=== PATIENT | male | born 1945 | race Caucasian/White ===

== ENCOUNTER 2016-09-18 10:56 | Emergency (ER) | payer MEDICARE, BC ==
[2016-09-18 11:42] VITALS: BP 127/62
--- NOTE | 2016-09-18 12:14 | UC ---
Lower Extremity/Ankle HPI - HPI Summary HPI Summary: Dropped firewood on R foot about 1 week ago. Still having pain with touch and ambulation. Has severe PAD, DM, has sensory problems in foot normally. - History of Current Complaint Chief Complaint: UCLowerExtremity Stated Complaint: FOOT INJURY Time Seen by Provider: 09/18/16 12:05 Hx Obtained From: Patient Onset/Duration: Sudden Onset, Lasting Days Severity Initially: Moderate Severity Currently: Moderate Aggravating Factor(s): Standing, Ambulation Alleviating Factor(s): Rest Able to Bear Weight: Yes - Allergies/Home Medications Allergies/Adverse Reactions: Allergies Allergy/AdvReac Type Severity Reaction Status Date / Time Morphine Allergy Severe Hives Verified 12/13/14 19:50 Iodinated Diagnostic Agents Allergy Hives Verified 09/21/15 14:29 IVP dye Allergy Severe Hives Uncoded 12/13/14 19:50 PACEMAKER-NO MRIs Allergy NO MRIs Uncoded 06/25/15 11:55 PMH/Surg Hx/FS Hx/Imm Hx Endocrine History Of: Reports: Diabetes - NO MEDS, Thyroid Disease Cardiovascular History Of: Reports: Cardiac Disorders, Hypertension, Pacemaker/ ICD - NO MRIs Denies: Congestive Heart Failure Respiratory History Of: Reports: COPD, Pneumonia Denies: Asthma GI/ History Of: Reports: Kidney Stones - CURRENT WITH LT OBSTRUCTION IN URETER Denies: Gastroesophageal Reflux, Ulcer, Renal Disease Neurological History Of: Denies: CVA, Dementia, Seizures Other History Of: Anticoagulant Therapy - COUMADIN PLAVIX AND ASA - Surgical History Surgical History: Yes Surgery Procedure, Year, and Place: Bypass, 08/1991, Hx 5 DC's, Pacemaker 08/2011 - NO MRIs - Family History Known Family History: Positive: Hypertension, Other - Father of a pulmonary disease and mother of a brain tumor - Social History Alcohol Use: Rare Substance Use Type: None Smoking Status (MU): Heavy Every Day Tobacco Smoker Type: Cigarettes Amount Used/How Often: 1PPD Length of Time of Smoking/Using Tobacco: 1966- current - Immunization History Most Recent Tetanus Shot: < 10 years Review of Systems Constitutional: Negative Skin: Negative Eyes: Negative ENT: Negative Respiratory: Negative Cardiovascular: Negative Gastrointestinal: Negative Genitourinary: Negative Motor: Negative Neurovascular: Negative Musculoskeletal: Arthralgia Neurological: Negative Psychological: Negative All Other Systems Reviewed And Are Negative: Yes Physical Exam Triage Information Reviewed: Yes Appearance: Well-Appearing, No Pain Distress, Well-Nourished Vital Signs: Initial Vital Signs Temp 98.3 F 09/18/16 11:38 Pulse 68 09/18/16 11:38 Resp 16 09/18/16 11:38 BP 127/62 09/18/16 11:38 Pulse Ox 99 09/18/16 11:38 Vital Signs Reviewed: Yes Eye Exam: Normal Eyes: Positive: Conjunctiva Clear ENT Exam: Normal ENT: Positive: Normal ENT inspection, Hearing grossly normal, Pharynx normal, TMs normal Neck exam: Normal Neck: Positive: Supple, Nontender, No Lymphadenopathy Respiratory Exam: Normal Respiratory: Positive: Chest non-tender, Lungs clear, Normal breath sounds, No respiratory distress, No accessory muscle use Cardiovascular: Positive: RRR, No Murmur, Distal Pulses Absent - RLE, pt states this is normal, as had femoral-popliteal grafts, usually has a hard time finding pulse with doppler Musculoskeletal: Positive: Strength Intact, Other: - tender over R 2nd - 4th MTs Neurological Exam: Normal Neurological: Positive: Alert Lower Extremity Course/Dx - Differential Dx/Diagnosis Provider Diagnoses: R foot crush injury Discharge - Discharge Plan Condition: Stable Disposition: HOME Patient Education Materials: Crush Injury (ED) Referrals: Raghu Zacarias MD [Primary Care Provider] - Additional Instructions: No fracture of your bones, no sign of infection today. Please return here or see your primary care provider if there is worsening pain or discoloration in your foot.
--- NOTE | 2016-09-18 12:31 | RAD ---
INDICATION: Right foot pain COMPARISON: None TECHNIQUE: AP, lateral, and oblique views were obtained. FINDINGS: There is no acute fracture. The joint spaces are preserved. There is soft tissue swelling over the dorsum of the midfoot. There are vascular calcifications. IMPRESSION: NO ACUTE FRACTURE
== END 2016-09-18 12:50 | disposition home or self-care (01) ==
LOC: UCEAST 10:56
DX: S97.81XA Crushing injury of right foot, initial encounter (principal); W20.8XXA Other cause of strike by thrown, projected or falling object, initial encounter; Y93.9 Activity, unspecified; Y92.9 Unspecified place or not applicable; Z79.01 Long term (current) use of anticoagulants; Z79.82 Long term (current) use of aspirin; Z95.0 Presence of cardiac pacemaker; Z95.1 Presence of aortocoronary bypass graft; Z88.5 Allergy status to narcotic agent; F17.210 Nicotine dependence, cigarettes, uncomplicated
CPT/HCPCS: 99211; G0463

== ENCOUNTER 2016-11-21 10:51 | Emergency (ER) | payer MEDICARE, BC | END 2016-11-21 11:00 | disposition left against medical advice (07) | LOC: UCEAST 10:51 | DX: T81.89XA Other complications of procedures, not elsewhere classified, initial encounter (principal); Z53.21 Procedure and treatment not carried out due to patient leaving prior to being seen by health care provider ==

== ENCOUNTER 2016-11-21 11:37 | Emergency (ER) | payer MEDICARE, BC ==
[2016-11-21 11:42] VITALS: BP 120/75
--- NOTE | 2016-11-21 12:52 | ED ---
Complex/Multi-Sys Presentation - HPI Summary HPI Summary: 71M presents with need for wound to be reattached. He woke up and the wound vac was unattached He has a wound vac on his right leg for a bypass 6 weeks ago. He sees the wound clinic twice a week. He denies any fever or or sign of infection. He does not have home health set up. - History Of Current Complaint Chief Complaint: EDGeneral Time Seen by Provider: 11/21/16 11:44 - Allergies/Home Medications Allergies/Adverse Reactions: Allergies Allergy/AdvReac Type Severity Reaction Status Date / Time Morphine Allergy Severe Hives Verified 12/13/14 19:50 Iodinated Diagnostic Agents Allergy Hives Verified 09/21/15 14:29 IVP dye Allergy Severe Hives Uncoded 12/13/14 19:50 PACEMAKER-NO MRIs Allergy NO MRIs Uncoded 06/25/15 11:55 PMH/Surg Hx/FS Hx/Imm Hx Endocrine/Hematology History: Reports: Hx Anticoagulant Therapy - COUMADIN PLAVIX AND ASA, Hx Diabetes - NO MEDS, Hx Thyroid Disease Denies: Other Endocrine/Hematological Disorders Cardiovascular History: Reports: Hx Auto Implanted Cardiovert Defib - ICD 2004, Hx Coronary Artery Disease, Hx Hypertension, Hx Pacemaker/ICD - NO MRIs, Other Cardiovascular Problems/Disorders - PVD; Ischemic Cardiomyopathy; ANTICOAGULANT THERAPY Denies: Hx Cardiac Arrest, Hx Congestive Heart Failure Comment Only: Hx Peripheral Vascular Disease - HAS HAD FEM POP BIPASS Respiratory History: Reports: Hx Chronic Obstructive Pulmonary Disease (COPD), Hx Pneumonia, Hx Seasonal Allergies, Hx Sleep Apnea, Other Respiratory Problems/ Disorders - CHRONIC SMOKER. 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 Denies: Hx Asthma GI History: Denies: Hx Ulcer, Other GI Disorders History: Reports: Hx Acute Renal Failure - HX, Hx Kidney Stones - CURRENT WITH LT OBSTRUCTION IN URETER, Other Problems/Disorders - CURRENT UROSEPSIS Denies: Hx Renal Disease Musculoskeletal History: Reports: Hx Back Problems Denies: Other Musculoskeletal History - SCIATICA Sensory History: Reports: Hx Contacts or Glasses Denies: Hx Hearing Aid, Other Sensory Impairments Opthamlomology History: Reports: Hx Contacts or Glasses Denies: Other Sensory Impairments Neurological History: Denies: Hx Dementia, Hx Seizures, Other Neuro Impairments/Disorders Psychiatric History: Denies: Hx Substance Abuse, Other Psychiatric Issues/Disorders - Cancer History Cancer Type, Location and Year: LUNG 2014 - Surgical History Surgery Procedure, Year, and Place: Bypass, 08/1991, Hx 5 HI's, Pacemaker 08/2011 - NO MRIs Hx Anesthesia Reactions: No - Immunization History Date of Tetanus Vaccine: Unk Date of Influenza Vaccine: July 2014 Infectious Disease History: No Infectious Disease History: Denies: Hx Hepatitis, Hx Human Immunodeficiency Virus (HIV), Hx Shingles, Hx Tuberculosis, Traveled Outside the [place] in Last 30 Days - Family History Known Family History: Positive: Hypertension, Other - Father of a pulmonary disease and mother of a brain tumor - Social History Alcohol Use: Rare Substance Use Type: Reports: None Smoking Status (MU): Heavy Every Day Tobacco Smoker Type: Cigarettes Amount Used/How Often: 1PPD Length of Time of Smoking/Using Tobacco: 1966- current Review of Systems Negative: Fever Negative: Chest Pain Negative: Shortness Of Breath Skin: Other - wound vac unattached All Other Systems Reviewed And Are Negative: Yes Physical Exam Triage Information Reviewed: Yes Vital Signs On Initial Exam: Initial Vitals Temp Pulse Resp BP Pulse Ox 97.8 F 76 15 120/75 96 11/21/16 11:40 11/21/16 11:40 11/21/16 11:40 11/21/16 11:40 11/21/16 11:40 Vital Signs Reviewed: Yes Appearance: Positive: Well-Appearing Skin: Positive: Warm, Dry, Other - wound covered Head/Face: Positive: Normal Head/Face Inspection Eyes: Positive: Normal, Conjunctiva Clear Respiratory/Lung Sounds: Positive: Clear to Auscultation, Breath Sounds Present Cardiovascular: Positive: Normal, RRR Diagnostics - Vital Signs Vital Signs Temp Pulse Resp BP Pulse Ox 11/21/16 11:40 97.8 F 76 15 120/75 96 - Laboratory Lab Statement: Any lab studies that have been ordered have been reviewed, and results considered in the medical decision making process. Complex Multi-Symp Course/Dx Course Of Treatment: 71m presents with wound vac unattached that woke up with. has wound vac for wound on right leg from bypass surgery. nurse from short stay came down and reattached wound vac. tried to get patient set up with home health but does not want at this time. told to talk to wound clinic at next appointment to have set up incase this happens again. patient understands and agrees with plan - Diagnoses Differential Diagnoses/HQI/PQRI: Sepsis, Other - wound vac problem Provider Diagnoses: Encounter for management of vacuum-assisted closure (VAC) of wound Discharge - Discharge Plan Condition: Good Disposition: HOME Referrals: Raghu Zacarias MD [Primary Care Provider] - Additional Instructions: Follow up as normally scheduled At next appointment discuss home health for incase have issue with wound vac again Return to ED if develop any new or worsening symptoms
== END 2016-11-21 12:56 | disposition home or self-care (01) ==
LOC: ED 11:37
DX: T81.89XA Other complications of procedures, not elsewhere classified, initial encounter (principal); Z48.01 Encounter for change or removal of surgical wound dressing
CPT/HCPCS: 99281

== ENCOUNTER 2017-03-22 19:13 | Inpatient (IN) | payer MEDICARE, BC ==
[2017-03-22] MEDS ORDERED: NS 0.9% 1000 ML* 1,000 ML IV SCH ×2 (19:30→20:45)
[2017-03-22 19:45] LABS: Hematocrit 42 % (42-52); Hemoglobin 13.4 g/dl (14.0-18.0); Mean Corpuscular HGB Conc 32 g/dl (31-36); Mean Corpuscular Hemoglobin 27 pg (27-31); Mean Corpuscular Volume 83 fL (80-94); Mean Platelet Volume 9 um3 (7.4-10.4); Red Blood Count 5.07 10^6/ul (4.0-5.4); Red Cell Distribution Width 18 % (10.5-15); White Blood Count 7.9 10^3/ul (3.5-10.8)
--- NOTE | 2017-03-22 20:04 | RAD ---
HISTORY: History of lung cancer, internal defibrillator activation COMPARISONS: September 21, 2015, CT dated January 25, 2017 VIEWS: 2: frontal portable view of the chest at 7:43 PM FINDINGS: LINES AND TUBES: A left-sided ICD pacemaker is noted. CARDIOMEDIASTINAL SILHOUETTE: The cardiac silhouette is mildly enlarged. The cardiomediastinal silhouette is otherwise normal for portable technique. PLEURA: The costophrenic angles are sharp. No pleural abnormalities are noted. LUNG PARENCHYMA: There is patchy alveolar opacification of the right lung base. This appears to correspond to postsurgical change noted on the previous CT examination. ABDOMEN: The upper abdomen is clear. There is no subphrenic gas. BONES AND SOFT TISSUES: No bone or soft tissue abnormalities are noted. IMPRESSION: MILD CARDIOMEGALY. NO ACTIVE CARDIOPULMONARY DISEASE.
[2017-03-22 20:06] LABS: Albumin 3.8 g/dL (3.2-5.2); BUN/Creatinine Ratio 17.5 (8-20); C Reactive Protein 7.9 mg/L (< 5.00); EGFR African American 57.7 (>60); EGFR Non-African American 44.9 (>60); Magnesium 1.6 mg/dL (1.9-2.7); Potassium 3.3 mmol/L (3.5-5.0); Total Bilirubin 0.6 mg/dL (0.2-1.0); Total Protein 6.8 g/dL (6.4-8.9)
[2017-03-22] MEDS ORDERED: NS 0.9% 1000 ML* 1,000 ML IV ONE (20:06)
[2017-03-22] MEDS ORDERED: Amiodarone 150 MG IVPREMIX* 150 MG/100 ML BAG IV ONE (20:14)
[2017-03-22] MEDS ORDERED: Amiodarone 360 MG IVPREMIX* 360 MG/200 ML BAG IV ONE ×2 (20:14→20:41)
[2017-03-22 20:16] LABS: Troponin I 0.04 ng/mL (<0.04)
[2017-03-22] MEDS ORDERED: Potassium Chlor TAB* 20 MEQ TAB.ER PO ONE (20:18)
[2017-03-22 20:29] LABS: TSH (Thyroid Stimulating Horm) 0.91 mcIU/mL (0.34-5.60)
[2017-03-22] MEDS ORDERED: Acetaminophen TAB* 325 MG PO PRN (20:38)
[2017-03-22] MEDS ORDERED: KCL 20 MEQ/100 ML IVPREMIX* 20 MEQ/100 ML BAG IV ONE (20:43)
[2017-03-22] MEDS: Magnesium Sulfate 2 GM IV* 2 GM/50 ML BAG IVPB ONE ×2 (20:54→23:24)
[2017-03-23] MEDS ORDERED: Zolpidem TAB* 10 MG PO PRN (00:03)
--- NOTE | 2017-03-23 01:19 | HP ---
CC: Dr. Zacarias; Dr. Roth, Vascular Surgeon, [place]; Dr. Koch, Radiation Oncology; Dr. Dennis, Cardiology; Dr. Valladares, Cardiology * HISTORY AND PHYSICAL: DATE OF ADMISSION: 03/22/17 PRIMARY CARE PHYSICIAN: Dr. Zacarias. CHIEF COMPLAINT: "Defibrillator shock." HISTORY OF PRESENT ILLNESS: [place]la is a 71-year-old male with a history of ischemic cardiomyopathy with EF of 20% to 25% as well as peripheral artery disease, who is still smoking, who presented to [facility] after complaining of defibrillator shocking him. The patient stated that he was sitting and reading a book when all of a sudden he felt lightheaded and then he felt a shock delivered to his chest. He stated that since the defibrillator was placed in 5 years ago that was the first time. He came in to the ED for evaluation and when he was in the emergency department, he also started getting lightheaded and was in ventricular tachycardia that was terminated after ICD fired again. This time, the episode was witnessed. The patient complained of no chest pain or shortness of breath before apart from lightheadedness. The patient is going to be admitted to the intensive care unit with diagnosis of ICD firing and ventricular tachycardia. PAST MEDICAL HISTORY: 1. History of peripheral artery disease, status post fem-pop bypass bilaterally as well as iliac-tibial bypass on the right, it was complicated by postoperative wound infection and eventually the graft was removed in January of 2017. It originally was placed in by Dr. Roth in October 2016. 2. History of ventricular tachycardia, status post ICD placement. 3. History of atrial fibrillation, on anticoagulation with Coumadin. 4. History of hypothyroidism. 5. Gastroesophageal reflux disease. 6. Hypertension. 7. History of COPD, not on oxygen, and current smoker. 8. History of dyslipidemia. 9. Coronary artery disease, status post coronary artery bypass grafting in 1992 , also had multiple stents and angioplasties in the past. 10. History of mixed systolic and diastolic congestive heart failure with an EF noted of 20% to 25% on echo done in [place] in October 2016. 11. Chronic kidney insufficiency, stage 2 to 3. 12. History of lung cancer, status post radiation. CURRENT MEDICATIONS: Include: 1. Coumadin 5 mg alternating with 2.5 mg. 2. Metoprolol succinate 12.5 mg b.i.d. 3. Levothyroxine mcg daily. 4. Hydrochlorothiazide 25 mg daily. 5. Lunesta 3 mg at bedtime. 6. Plavix 75 mg daily. 7. Vitamin D3 1000 units daily. 8. Keflex 500 mg 3 times a day. 9. Lipitor 80 mg daily. ALLERGIES: Include MORPHINE, IODINATED CONTRAST, LISINOPRIL, COZAAR, SPIRONOLACTONE. FAMILY HISTORY: Positive for mother who of brain tumor and father who of lung issue, possibly PE. SOCIAL HISTORY: The patient has a history of 1 pack per day of smoking and he started when he was 16. He currently still smokes. He denies any alcohol or drug use. He lives alone and is . He could not name a surrogate today. REVIEW OF SYSTEMS: Please see history of present illness. The patient stated that he goes to be seen by the wound care physician at least once to twice a week and he changes his dressings to the right medial leg every 3 days. His dressing was just changed. 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 The patient has been on Keflex for his right distal lower extremity ulcer for quite some time now. He denies any nausea, vomiting, diarrhea. He denies any weight changes, although he stated that when he was in [place] for his surgery originally in October 2016, he received a lot of intravenous fluids and then he "lost it all." He stated that after his hospitalization in [place], he lost approximately 20 pounds. He has chronic respiratory congestion and "phlegm," which once again he states it is chronic due to smoking. He is not interested in smoking cessation. He apparently is following with Dr. Brown and he discussed in the past with other physicians the possibility of losing his life and that "did not scare him enough." All the 14 systems reviewed with the patient and were otherwise negative. PHYSICAL EXAMINATION VITAL SIGNS: Blood pressure 111/65, heart rate of 82 and regular, respiratory rate 20, oxygen saturation on room air, temperature of 99.3. GENERAL: The patient is a very pleasant 71-year-old male, who is not in acute distress. Alert, awake, and oriented x3. HEENT: Head: Atraumatic, normocephalic. Eyes: Pupils equal and reactive to light and accommodation. Oropharynx clear. Mucosa moist. NECK: Supple. No JVD. No bruits bilaterally. RESPIRATORY: Coarse wheezes in bilateral mid lungs, otherwise clear. CARDIOVASCULAR: Regular rate and rhythm. No murmurs. ABDOMEN: Protuberant, soft, nontender. Bowel sounds present in all 4 quadrants. EXTREMITIES: There is trace bilateral pedal edema, right more than left. The right lower extremity appears hyperemic, which appears chronic. There is good capillary refill, but I am unable to palpate pedal pulses on the right. The patient has thready pulses in the left lower extremity. There is good capillary refill on the left. NEUROLOGIC: Speech clear. Cranial nerves II through XII are grossly intact. Motor strength is 5/5 bilaterally. PSYCHIATRIC: Oriented x3 with no evidence of anxiety or depression. SKIN: On evaluation of the patient's skin, the patient has chronic ulcerations on the right leg that appears to be incision like related wound right above the right ankle of approximately 5 cm in diameter that is clear with no drainage at this point. The patient also has dry shallow ulcers also covered with eschar on the dorsum of the right foot and a small ulceration on the medial aspect of the right thigh approximately 1 cm in diameter, not infected. DIAGNOSTIC STUDIES/LAB DATA: Show white blood cell count of 7.9, hemoglobin of 5.7, hemoglobin of 13.4, hematocrit of 42, and platelets of 181. Sodium was 139, potassium 3.3, chloride 101, carbon dioxide 32, BUN 27, creatinine 1.54 with a baseline creatinine of 1.2 in the past. Lactic acid of 2.9. Magnesium of 1.7. Troponin of 0.04. Brain natriuretic peptide was 365. TSH was 0.9. Portable chest x-ray was read by the radiologist as "mild cardiomegaly with no active cardiopulmonary disease." The patient's EKG showed sinus rhythm with nonspecific intraventricular conduction delay with PVC. It was grossly compatible to his EKG obtained previously in 2016. ASSESSMENT AND PLAN: 1. For the patient's ventricular tachycardia that was terminated by by implantable cardioverter-defibrillator shocks x2 today, it is most likely related to the patient's low magnesium and low potassium levels. At this time, the patient is going to be placed in the intensive care unit and continued on amiodarone drip that was recommended by Dr. Valladares to the ED provider. The patient is going to be off Coumadin and Plavix as per Dr. Valladares's recommendation. I will place him on clear liquid diet now and n.p.o. in the morning in case the patient will require procedure. 2. In regards to the patient's hypertension, I will continue the patient on his beta mayra with hold parameters if tolerated well on amiodarone drip. 3. For hypomagnesemia and hypokalemia, that will be replaced p.o. and IV. 4. For chronic right lower extremity wound, the patient is going to be continued on cephalexin as previously taken. 5. For DVT prophylaxis, the patient's INR today is therapeutic at 2.5. Once again, his anticoagulation is going to be held. 6. The patient's code status is full. The patient did not wish to name a surrogate today. TIME SPENT: Approximately 75 minutes was spent on admission of this patient; more than half that time was spent [id number] with the patient during the interview, physical exam, and counseling. Please also note that the patient was counseled in regards to harmful effects of tobacco smoking, which the patient himself observed during his lifetime, which includes peripheral vascular disease as well as coronary artery disease and lung cancer. Nevertheless, the patient stated that he is not willing and ready to quit. He is going to be placed on nicotine patch when in the hospital. [id number] #: [id number] MTDD
[2017-03-23] MEDS: Levothyroxine TAB* 88 MCG TAB PO SCH (05:45)
[2017-03-23] MEDS ORDERED: Furosemide IV* 10 MG/ML 2 ML VIAL (20 MG) IV ONE (06:01)
[2017-03-23] MEDS ORDERED: Furosemide IV* 10 MG/ML 2 ML VIAL (20 MG) ONE (06:03)
[2017-03-23] MEDS ORDERED: Levalbuterol 0.63MG/3ML NEB* UNIT OF USE INH ONE (06:57)
--- NOTE | 2017-03-23 07:03 | ED ---
Duane Greco Benjamin, scribed for Quentin Zuniga MD on 03/22/17 at 2039 . Palpitations / Dysrhythmia - HPI Summary HPI Summary: 71yo male c/o his defibrillator going off today around 1830, when pt was watching TV at home. Pt reports feeling lightheaded immediately before, Pt has various cardiac hx, including IN, CABG, and afib, Pt has both pacemaker and defibrillator in placed. Pt denies any CP or SOB. Pt takes Coumadin and Plavix. Dr. Dennis is his lieutenant shift supervisor. - History of Current Complaint Chief Complaint: EDDysrhythmPalp Hx Obtained From: Patient Onset/Duration: Sudden Onset, Lasting Minutes Timing: Constant Severity Initially: Mild Severity Currently: None Character: Irregular - V tach Aggravating: Nothing Alleviating: Nothing Associated Signs & Symptoms: Lightheadedness - Allergy/Home Medications Allergies/Adverse Reactions: Allergies Allergy/AdvReac Type Severity Reaction Status Date / Time Morphine Allergy Severe Hives Verified 12/13/14 19:50 Iodinated Diagnostic Agents Allergy Hives Verified 09/21/15 14:29 IVP dye Allergy Severe Hives Uncoded 12/13/14 19:50 PACEMAKER-NO MRIs Allergy NO MRIs Uncoded 06/25/15 11:55 Home Medications: Home Medications Levothyroxine Sodium [Levoxyl] 176 mcg PO DAILY 03/22/17 [History Confirmed ] Metoprolol Succinate 12.5 mg PO BID 03/22/17 [History Confirmed 03/22/17] Warfarin Sodium 5 mg PO 03/22/17 [History] PMH/Surg Hx/FS Hx/Imm Hx Endocrine/Hematology History: Reports: Hx Anticoagulant Therapy - COUMADIN PLAVIX AND ASA, Hx Diabetes - NO MEDS, Hx Thyroid Disease Denies: Other Endocrine/Hematological Disorders Cardiovascular History: Reports: Hx Auto Implanted Cardiovert Defib - ICD 2004, Hx Coronary Artery Disease, Hx Hypertension, Hx Pacemaker/ICD - NO MRIs, Other Cardiovascular Problems/Disorders - PVD; Ischemic Cardiomyopathy; ANTICOAGULANT THERAPY Denies: Hx Cardiac Arrest, Hx Congestive Heart Failure Comment Only: Hx Peripheral Vascular Disease - HAS HAD FEM POP BIPASS Respiratory History: Reports: Hx Chronic Obstructive Pulmonary Disease (COPD), Hx Pneumonia, Hx Seasonal Allergies, Hx Sleep Apnea, Other Respiratory Problems/ Disorders - CHRONIC SMOKER. 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 Denies: Hx Asthma GI History: Denies: Hx Ulcer, Other GI Disorders History: Reports: Hx Acute Renal Failure - HX, Hx Kidney Stones - CURRENT WITH LT OBSTRUCTION IN URETER, Other Problems/Disorders - CURRENT UROSEPSIS Denies: Hx Renal Disease Musculoskeletal History: Reports: Hx Back Problems Denies: Other Musculoskeletal History - SCIATICA Sensory History: Reports: Hx Contacts or Glasses Denies: Hx Hearing Aid, Other Sensory Impairments Opthamlomology History: Reports: Hx Contacts or Glasses Denies: Other Sensory Impairments Neurological History: Denies: Hx Dementia, Hx Seizures, Other Neuro Impairments/Disorders Psychiatric History: Denies: Hx Substance Abuse, Other Psychiatric Issues/Disorders - Cancer History Cancer Type, Location and Year: LUNG 2014 - Surgical History Surgery Procedure, Year, and Place: Bypass, 08/1991, Hx 5 IN's, Pacemaker 08/2011 - NO MRIs Hx Anesthesia Reactions: No - Immunization History Date of Tetanus Vaccine: Unk Date of Influenza Vaccine: July 2014 Infectious Disease History: No Infectious Disease History: Denies: Hx Hepatitis, Hx Human Immunodeficiency Virus (HIV), Hx Shingles, Hx Tuberculosis, Traveled Outside the [place] in Last 30 Days - Family History Known Family History: Positive: Hypertension, Other - Father of a pulmonary disease and mother of a brain tumor - Social History Occupation: Retired Lives: Alone Alcohol Use: Rare Substance Use Type: Reports: None Smoking Status (MU): Current Every Day Smoker Type: Cigarettes Amount Used/How Often: 1PPD Length of Time of Smoking/Using Tobacco: 1967- current Review of Systems Constitutional: Negative Eyes: Negative ENT: Negative Positive: Palpitations - difibrillator failing . Negative: Chest Pain Respiratory: Negative Negative: Shortness Of Breath Gastrointestinal: Negative Genitourinary: Negative Musculoskeletal: Negative Skin: Negative Neurological: Other - lightheadedness Psychological: Normal All Other Systems Reviewed And Are Negative: Yes Physical Exam Triage Information Reviewed: Yes Vital Signs On Initial Exam: Initial Vitals Temp Pulse Resp BP Pulse Ox 99.3 F 83 24 97/57 96 03/22/17 19:44 03/22/17 19:44 03/22/17 19:44 03/22/17 19:44 03/22/17 19:44 Vital Signs Reviewed: Yes Appearance: Positive: Well-Appearing, No Pain Distress, Well-Nourished Skin: Positive: Warm, Skin Color Reflects Adequate Perfusion, Dry Head/Face: Positive: Normal Head/Face Inspection Eyes: Positive: EOMI, JENNY ENT: Positive: Normal ENT inspection, Hearing grossly normal Neck: Positive: Supple, No Lymphadenopathy Respiratory/Lung Sounds: Positive: Clear to Auscultation, Breath Sounds Present Cardiovascular: Positive: Leg Edema Left - bilateral pedal edema, Leg Edema Right - bilateral pedal edema, Other - During exam, pt went to V-Tach with 41 beats. Pt was shocked by his internal defibrillator but then went back to normal. Pt was awake during the whole episode. Per RN, pt had another episode prior, during his stay in the ED. Abdomen Description: Positive: Nontender, Soft Bowel Sounds: Positive: Present Musculoskeletal: Positive: Strength/ROM Intact Neurological: Positive: Sensory/Motor Intact, Alert, Oriented to Person Place, Time Psychiatric: Positive: Affect/Mood Appropriate - [place] Coma Scale Coma Scale Total: 15 Diagnostics - Vital Signs Vital Signs Temp Pulse Resp BP Pulse Ox 03/22/17 20:00 79 21 95 03/22/17 19:52 77 31 95 03/22/17 19:44 99.3 F 83 24 97/57 96 - Laboratory Lab Results: Lab Results 03/22/17 03/22/17 03/22/17 Range/Units 19:31 19:31 19:31 WBC (3.5-10.8) 10^3/ul RBC (4.0-5.4) 10^6/ul Hgb (14.0-18.0) g/dl Hct (42-52) % MCV (80-94) fL MCH (27-31) pg MCHC (31-36) g/dl RDW (10.5-15) % Plt Count (150-450) 10^3/ul MPV (7.4-10.4) um3 Neut % (Auto) (38-83) % Lymph % (Auto) (25-47) % [place] % (Auto) (1-9) % Eos % (Auto) (0-6) % Baso % (Auto) (0-2) % Absolute Neuts (auto) (1.5-7.7) 10^3/ul Absolute Lymphs (auto) (1.0-4.8) 10^3/ul Absolute Monos (auto) (0-0.8) 10^3/ul Absolute Eos (auto) (0-0.6) 10^3/ul Absolute Basos (auto) (0-0.2) 10^3/ul Absolute Nucleated RBC 10^3/ul Nucleated RBC % INR (Anticoag Therapy) 2.51 H (0.89-1.11) APTT 36.2 (26.0-36.3) seconds Sodium 139 (133-145) mmol/L Potassium 3.3 L (3.5-5.0) mmol/L Chloride 101 (101-111) mmol/L Carbon Dioxide 32 (22-32) mmol/L Anion Gap 6 (2-11) mmol/L BUN 27 H (6-24) mg/dL Creatinine 1.54 H (0.67-1.17) mg/dL Est GFR ( Amer) 57.7 (>60) Est GFR (Non-Af Amer) 44.9 (>60) BUN/Creatinine Ratio 17.5 (8-20) Glucose 127 H (70-100) mg/dL Lactic Acid (0.5-2.0) mmol/L Calcium 9.0 (8.6-10.3) mg/dL Magnesium 1.6 L (1.9-2.7) mg/dL Total Bilirubin 0.60 (0.2-1.0) mg/dL AST 16 (13-39) U/L ALT 17 (7-52) U/L Alkaline Phosphatase 95 (34-104) U/L Total Creatine Kinase 37 (10-223) U/L CK-MB (CK-2) 2.0 (0.6-6.3) ng/mL Troponin I 0.04 H* (<0.04) ng/mL C-Reactive Protein 7.90 H (< 5.00) mg/L B-Natriuretic Peptide 365 H ( - 100) pg/mL Total Protein 6.8 (6.4-8.9) g/dL Albumin 3.8 (3.2-5.2) g/dL Globulin 3.0 (2-4) g/dL Albumin/Globulin Ratio 1.3 (1-3) Lipase 26 (11.0-82.0) U/L TSH 0.91 (0.34-5.60) mcIU/mL 03/22/17 03/22/17 Range/Units 19:31 19:31 WBC 7.9 (3.5-10.8) 10^3/ul RBC 5.07 (4.0-5.4) 10^6/ul Hgb 13.4 L (14.0-18.0) g/dl Hct 42 (42-52) % MCV 83 (80-94) fL MCH 27 (27-31) pg MCHC 32 (31-36) g/dl RDW 18 H (10.5-15) % Plt Count 181 (150-450) 10^3/ul MPV 9 (7.4-10.4) um3 Neut % (Auto) 68.1 (38-83) % Lymph % (Auto) 20.4 L (25-47) % [place] % (Auto) 8.8 (1-9) % Eos % (Auto) 1.7 (0-6) % Baso % (Auto) 1.0 (0-2) % Absolute Neuts (auto) 5.4 (1.5-7.7) 10^3/ul Absolute Lymphs (auto) 1.6 (1.0-4.8) 10^3/ul Absolute Monos (auto) 0.7 (0-0.8) 10^3/ul Absolute Eos (auto) 0.1 (0-0.6) 10^3/ul Absolute Basos (auto) 0.1 (0-0.2) 10^3/ul Absolute Nucleated RBC 0 10^3/ul Nucleated RBC % 0 INR (Anticoag Therapy) (0.89-1.11) APTT (26.0-36.3) seconds Sodium (133-145) mmol/L Potassium (3.5-5.0) mmol/L Chloride (101-111) mmol/L Carbon Dioxide (22-32) mmol/L Anion Gap (2-11) mmol/L BUN (6-24) mg/dL Creatinine (0.67-1.17) mg/dL Est GFR ( Amer) (>60) Est GFR (Non-Af Amer) (>60) BUN/Creatinine Ratio (8-20) Glucose (70-100) mg/dL Lactic Acid 2.9 H* (0.5-2.0) mmol/L Calcium (8.6-10.3) mg/dL Magnesium (1.9-2.7) mg/dL Total Bilirubin (0.2-1.0) mg/dL AST (13-39) U/L ALT (7-52) U/L Alkaline Phosphatase (34-104) U/L Total Creatine Kinase (10-223) U/L CK-MB (CK-2) (0.6-6.3) ng/mL Troponin I (<0.04) ng/mL C-Reactive Protein (< 5.00) mg/L B-Natriuretic Peptide ( - 100) pg/mL Total Protein (6.4-8.9) g/dL Albumin (3.2-5.2) g/dL Globulin (2-4) g/dL Albumin/Globulin Ratio (1-3) Lipase (11.0-82.0) U/L TSH (0.34-5.60) mcIU/mL Result Diagrams: 03/22/17 19:31 03/22/17 19:31 Lab Statement: Any lab studies that have been ordered have been reviewed, and results considered in the medical decision making process. - Radiology CXR Xray Interpretation: Positive (See Comments) - IMPRESSION: MILD CARDIOMEGALY. NO ACTIVE CARDIOPULMONARY DISEASE. Radiology Interpretation Completed By: Radiologist - ED physician has reviewed this radiology report and agrees. - EKG 2000. Cardiac Rate: NL - 77bpm EKG Rhythm: Sinus Rhythm Ectopy: PVCs EKG Interpretation: multiform PVCs. LVH Course/Dx - Course Assessment/Plan: 71yo male c/o his defibrillator going off today around 1830, when pt was watching TV at home. Pt reports feeling lightheaded immediately before, Pt has various cardiac hx, including IN, CABG, and afib, Pt has both pacemaker and defibrillator in placed. Pt denies any CP or SOB. Pt takes Coumadin and Plavix. Dr. Dennis is his lieutenant shift supervisor. CXR reveals mild cardiomegaly. EKG is sinus rhythm with PVCs and LVH. Troponin of 0.04, potassium of 3.3. In the ED course, pt received Amiodarone, Magnesium Sulfate, potassium chloride and fluids. Discussed with Dr. Valladares ([employer] Outseamer) at [address] Lopez (Hospitalogist) at 2022 hour who accepts pt for admission. Reviewed pts medication and allergy lists. Blood pressure noted. ADMIT HOSPITALIST TO ICU. - Diagnoses Provider Diagnoses: Ventricular tachycardia - Critical Care Time Critical Care Time: 30-74 min Discharge - Discharge Plan Condition: Critical Disposition: ADMITTED TO [facility] The documentation as recorded by the Duane garvin Benjamin accurately reflects the service I personally performed and the decisions made by me, Quentin Zuniga MD.
[2017-03-23 07:05] LABS: BUN/Creatinine Ratio 15.3 (8-20); Calcium 8.7 mg/dL (8.6-10.3); EGFR Non-African American 32.6 (>60); Magnesium 1.8 mg/dL (1.9-2.7); Potassium 4.3 mmol/L (3.5-5.0)
[2017-03-23] MEDS ORDERED: Magnesium Sulfate 2 GM IV* 2 GM/50 ML BAG IVPB ONE (08:15)
[2017-03-23 08:34] LABS: Hematocrit 44 % (42-52); Hemoglobin 13.8 g/dl (14.0-18.0); Mean Corpuscular HGB Conc 31 g/dl (31-36); Mean Corpuscular Hemoglobin 26 pg (27-31); Mean Corpuscular Volume 83 fL (80-94); Red Blood Count 5.34 10^6/ul (4.0-5.4); Red Cell Distribution Width 18 % (10.5-15); White Blood Count 11.8 10^3/ul (3.5-10.8)
[2017-03-23 08:43] LABS: Add Diff/Slide Review? Slide Review Added; Comments Flag Yes
[2017-03-23] MEDS ORDERED: Amiodarone 360 MG IVPREMIX* 360 MG/200 ML BAG IV ONE (08:54)
[2017-03-23] MEDS ORDERED: Influenza VAC *QUAD* 2017-18* 0.5 ML SYRINGE IM ONE (09:00)
[2017-03-23] MEDS ORDERED: Metoprolol Succinate XL TAB* 25 MG PO SCH (09:00)
--- NOTE | 2017-03-23 09:01 | PN ---
Subjective Date of Service: 03/23/17 Interval History: HOSPITALIST PROGRESS NOTE Patient seen and examined at bedside. He had some dyspnea earlier today, but "not that different than usual". States his has dyspnea on exertion, PND, and orthopnea at baseline. Sleeps propped up on his couch. States he had chest pain when ICD shocked him, but chest pain is now resolved. Family History: Unchanged from Admission Social History: Unchanged from Admission Past Medical History: Unchanged from Admission Objective Active Medications: Acetaminophen (Tylenol Tab*) 650 mg PO Q4H PRN PRN Reason: FEVER/PAIN Atorvastatin Calcium (Lipitor*) 80 mg PO DAILY [facility] Cephalexin HCl (Keflex Cap*) 500 mg PO TID [facility] Magnesium Sulfate (Magnesium Sulfate 2 Gm Iv*) 2 gm in 50 mls @ 50 mls/hr IVPB ONCE ONE Stop: 03/23/17 09:14 Amiodarone HCl (Nexterone 360 Mg/200 Ml Ivpremix*) 360 mg in 200 mls @ 16.666 mls/hr IV .PER PROTOCOL [facility] PRN Reason: 0.5 MG/MIN Influenza Virus Vaccine (Fluarix *Quad* 2016-*) 0.5 ml IM .ONCE ONE Stop: 03/23/17 09:01 Levothyroxine Sodium (Synthroid Tab*) 176 mcg PO 0600 [facility] Last Admin: 03/23/17 05:45 Dose: 176 mcg Metoprolol Succinate (Toprol Xl Tab*) 12.5 mg PO BID [facility] Nicotine (Nicotine Patch 21 Mg/24 Hr*) 1 patch TRANSDERM DAILY [facility] Non-Formulary Medication (Hydrochlorothiazide) 25 mg PO DAILY [facility] Zolpidem Tartrate (Ambien Tab*) 10 mg PO BEDTIME PRN PRN Reason: INSOMNIA Last Admin: 03/23/17 01:03 Dose: 10 mg Vital Signs 03/23/17 03/23/17 03/23/17 03:00 03:01 04:00 Temperature 98 F Pulse Rate 77 78 77 Respiratory 15 26 36 Rate Blood Pressure 103/71 98/74 (mmHg) O2 Sat by Pulse 93 93 93 Oximetry Oxygen Devices in Use Now: Nasal Cannula Appearance: Elderly gentleman sitting up in a recliner in [facility]. Eyes: No Scleral Icterus Ears/Nose/Mouth/Throat: Mucous Membranes Moist Neck: Trachea Midline Respiratory: Symmetrical Chest Expansion and Respiratory Effort, - - BS+ bilaterally with scattered wheezes Cardiovascular: RRR - Normal S1 and S2 Abdominal: NL Sounds; No Tenderness; No Distention Extremities: - - Bilateral LE mild pitting edema, good capillary refill bilaterally, but pedal pulses are not palpable Neurological: Alert and Oriented x 3, NL Muscle Strength and Tone Lines/Tubes/Other Access: Clean, Dry and Intact Peripheral IV Nutrition: Taking PO's Result Diagrams: 03/23/17 08:11 03/23/17 06:44 Assess/Plan/Problems-Billing Assessment: Mr. Varela is a 71yo M with PMH of PAD, ischemic CMP with EF 20-25%, Vtach s/p ICD, Afib on AC, hypothyroidism, GERD, HTN, COPD, tobacco abuse, CAD, CKD, lung CA s/p radiation, who presented to ED after ICD shock. - Patient Problems (1) ICD (implantable cardioverter-defibrillator) discharge Comment: - Awaiting ICD interrogation to confirm Vtach was truly the trigger. - Continue Amiodarone load. - Awaiting Cardiology input. (2) Hypomagnesemia Comment: - Replete. (3) Hypokalemia Comment: - Replete. (4) CAD (coronary artery disease) Comment: - Troponin minimally elevated, no complaints of chest pain at this time. (5) Afib Comment: - Question if Afib RVR could have triggered his ICD shock. - Continue Metoprolol. (6) COPD (chronic obstructive pulmonary disease) Comment: - Patient states his dyspnea is unchanged from baseline. (7) Tobacco abuse Comment: - Patient understands the risks of tobacco use, including but not limited too worsening of lung, heart, vascular disease and cancer, but not willing to quit at this time. (8) DVT prophylaxis Comment: - INR still therapeutic. (9) Full code status Status and Disposition: Inpatient for management of Vtach requiring >48h for stabilization.
[2017-03-23] MEDS: Atorvastatin* 80 MG TAB PO SCH (09:12)
[2017-03-23] MEDS: Metoprolol Succinate XL TAB* 25 MG PO SCH ×2 (09:12→22:13)
[2017-03-23] MEDS: Amiodarone 360 MG IVPREMIX* 360 MG/200 ML BAG IV SCH ×2 (09:13→21:02)
[2017-03-23] MEDS: Nicotine PATCH 21 MG/24 HR* PATCH TRANSDERM SCH (09:16)
[2017-03-23] MEDS: Hydrochlorothiazide TAB* 25 MG PO SCH (09:30)
[2017-03-23] MEDS: Cephalexin CAP* 500 MG PO SCH ×3 (09:45→21:05)
--- NOTE | 2017-03-23 22:03 | CONS ---
CC: Dr. Dennis; Dr. Raghu Zacarias * CARDIOLOGY CONSULTATION: DATE OF CONSULT: 03/23/17 INDICATION FOR CONSULTATION: Ventricular tachycardia. HISTORY OF PRESENT ILLNESS: The patient is a 71-year-old gentleman with a history of ischemic cardiomyopathy, history of coronary artery bypass surgery in the distant past, history of of ICD implantation because of ischemic cardiomyopathy. The patient states that he was at home yesterday when he was sitting and reading a book, suddenly he felt lightheaded and then had a shock to his chest from his ICD. He came into the emergency room. In the emergency room, he was quite stable, then had the same return feeling of feeling lightheaded and then received a shock in the emergency room. Review of the rhythm strips from the emergency room demonstrated a ventricular tachycardia that was quite organized. There was a rate of 200 beats per minute. He was shocked back to normal sinus rhythm. Interrogation of his ICD today demonstrates normal function of his dual-chamber ICD. The patient has frequent episodes of atrial flutter, this has been going on for quite some time. His ICD demonstrates three episodes of ventricular tachycardia, two of which received ICD shocks and converted back to normal rhythm, one episode of VT terminated on its own before ICD shock was delivered. In speaking with the patient today, he has no complaints. PAST MEDICAL HISTORY: Significant for coronary artery disease, coronary artery bypass surgery in 1992, ICD implantation 5 years ago, history of atrial arrhythmias requiring anticoagulation, hypothyroidism, COPD, he is a current smoker, peripheral vascular disease with multiple revascularizations of his lower extremity, renal insufficiency, lung cancer, history of radiation. OUTPATIENT MEDICATIONS: 1. Coumadin as directed. 2. Metoprolol succinate 12.5 mg b.i.d. 3. Levothyroxine 1 tablet a day. 4. Hydrochlorothiazide 25 mg a day. 5. Lunesta 3 mg q.h.s. 6. Plavix 75 mg a day. 7. Vitamin D. 8. Keflex as directed. 9. Lipitor 80 mg a day. ALLERGIES: MORPHINE, IODINE CONTRAST, LISINOPRIL, COZAAR. SOCIAL HISTORY: He continues to smoke 1 pack of cigarettes a day. He denies alcohol use. He lives alone. He is . REVIEW OF SYSTEMS: Negative for changes in bowel or bladder habits. Negative for recent changes in medications. Negative for fevers and chills. Other 12- point review is unremarkable. PHYSICAL EXAM: Height is 5 feet 11 inches, weight 227 pounds, temperature 99.1 , heart rate is 70, blood pressure 105/63, respiratory rate is 23, oxygen saturation 93% on room air. Sclerae anicteric. Oropharynx is pink without erythema. Carotids are 2+ without bruits. JVD is normal. Thyroid is normal. Cardiac Exam: S1, S2 with a 1/6 systolic ejection murmur, no diastolic murmur. PMI is difficult to assess. Lungs have decreased breath sounds. There is mild rhonchi. There is no rales on exam. There is no dullness to percussion. Abdomen is soft, nontender, and nondistended with normoactive bowel sounds. Extremities show no edema. He has poor pulses of his dorsalis pedis and popliteal. The patient is awake, alert, and oriented. He moves all 4 extremities equally. DIAGNOSTIC STUDIES/LABORATORY DATA: CBC within normal limits. Chemistries within normal limits. BUN 31, creatinine 2. AST and ALT are within normal limits. TSH is normal. Initial troponin 0.04, second troponin 0.04. BNP 365. EKG demonstrates atrial flutter with poor R-wave progression, T-wave flattening. IMPRESSION: This is a 71-year-old gentleman with a history of severe ischemic cardiomyopathy, ejection fraction of 20%. He was admitted to the hospital because of episode of dizziness and ICD defibrillation. The patient clearly had ventricular tachycardia, which required ICD discharge. The patient has not had any recent change in his functional status, no recent changes in medications , nothing to consider a precipitant of this ventricular tachycardia. The patient has not had any anginal-type symptoms. For now, my recommendation is to initiate amiodarone for suppression of his atrial fibrillation and ventricular tachycardia. The patient will continue on his anticoagulation. The patient will continue on low- dose beta-blockers. There should be some consideration to repeat cardiac catheterization given his history of ischemic cardiomyopathy; however, I am not sure if the patient is a candidate for any further interventions. The case was discussed with Dr. Bhatia and Dr. Dennis. [id number]/[facility] #: [id number] JOSE
[2017-03-24 06:08] LABS: BUN/Creatinine Ratio 17.9 (8-20); Calcium 8.9 mg/dL (8.6-10.3); EGFR African American 36.5 (>60); EGFR Non-African American 28.4 (>60); Potassium 3.9 mmol/L (3.5-5.0)
[2017-03-24] MEDS: Levothyroxine TAB* 88 MCG TAB PO SCH (06:11)
[2017-03-24] MEDS: Cephalexin CAP* 500 MG PO SCH ×3 (08:27→19:54)
[2017-03-24] MEDS: Hydrochlorothiazide TAB* 25 MG PO SCH (08:27)
[2017-03-24] MEDS: Amiodarone TAB* 200 MG PO SCH ×2 (08:27→19:54)
[2017-03-24] MEDS: Atorvastatin* 80 MG TAB PO SCH (08:27)
[2017-03-24] MEDS: Nicotine PATCH 21 MG/24 HR* PATCH TRANSDERM SCH (08:32)
[2017-03-24] MEDS: Levalbuterol HFA INHALER* 1 PUFF MDI INH SCH ×3 (08:34→20:45)
[2017-03-24 10:15] LABS: Urine Bilirubin Negative (Negative); Urine Glucose Negative (Negative); Urine Nitrite Negative (Negative)
[2017-03-24] MEDS: Metoprolol Succinate XL TAB* 25 MG PO SCH ×2 (10:23→19:54)
--- NOTE | 2017-03-24 12:08 | PN ---
Subjective Date of Service: 03/24/17 Interval History: HOSPITALIST PROGRESS NOTE Patient seen and examined at bedside. States he did not sleep well last night because he did not take his Lunesta and Ambien doesn't work for him anymore. Dyspnea is at baseline. Multiple wounds to RLE. The one on his thigh drains pus when he pushes on it and he states this is chronic. Saw Dr. Brown as outpatient and is supposed to complete 8 weeks of antibiotic. He'll f/u with his Vascular surgeon in [place] in April to decide if the rest of his graft will be removed. Family History: Unchanged from Admission Social History: Unchanged from Admission Past Medical History: Unchanged from Admission Objective Active Medications: Acetaminophen (Tylenol Tab*) 650 mg PO Q4H PRN PRN Reason: FEVER/PAIN Amiodarone HCl (Cordarone Tab*) 200 mg PO BID [facility] Last Admin: 03/24/17 08:27 Dose: 200 mg Atorvastatin Calcium (Lipitor*) 80 mg PO DAILY [facility] Last Admin: 03/24/17 08:27 Dose: 80 mg Cephalexin HCl (Keflex Cap*) 500 mg PO TID [facility] Last Admin: 03/24/17 08:27 Dose: 500 mg Hydrochlorothiazide (Hydrodiuril Tab*) 25 mg PO DAILY [facility] Last Admin: 03/24/17 08:27 Dose: 25 mg Levalbuterol HCl (Xopenex Hfa Inhaler*) 2 puff INH Q6H [facility] Last Admin: 03/24/17 08:34 Dose: 2 puff Levothyroxine Sodium (Synthroid Tab*) 176 mcg PO 0600 [facility] Last Admin: 03/24/17 06:11 Dose: 176 mcg Metoprolol Succinate (Toprol Xl Tab*) 12.5 mg PO BID [facility] Last Admin: 03/24/17 10:23 Dose: Not Given Nicotine (Nicotine Patch 21 Mg/24 Hr*) 1 patch TRANSDERM DAILY [facility] Last Admin: 03/24/17 08:32 Dose: Not Given Temazepam (Restoril Cap*) 30 mg PO BEDTIME [facility] Zolpidem Tartrate (Ambien Tab*) 10 mg PO BEDTIME PRN PRN Reason: INSOMNIA Last Admin: 03/23/17 01:03 Dose: 10 mg Vital Signs 03/24/17 03/24/17 08:00 10:15 Temperature 98.4 F 97.8 F Pulse Rate 69 77 Respiratory 25 16 Rate Blood Pressure 98/62 (mmHg) O2 Sat by Pulse 94 92 Oximetry Oxygen Devices in Use Now: Nasal Cannula Appearance: Pleasant gentleman sitting up in a recliner in [place]. Eyes: No Scleral Icterus Ears/Nose/Mouth/Throat: Mucous Membranes Moist Neck: Trachea Midline Respiratory: Symmetrical Chest Expansion and Respiratory Effort, - - BS+ bilaterally with scattered wheezes Cardiovascular: RRR - Normal S1 and S2 Abdominal: NL Sounds; No Tenderness; No Distention Extremities: - - Bilateral LE moderate LE edema, with multiple small wounds on surgical site. The one on his right thigh has purulent drainage Neurological: Alert and Oriented x 3, NL Muscle Strength and Tone Lines/Tubes/Other Access: Clean, Dry and Intact Peripheral IV Nutrition: Taking PO's Result Diagrams: 03/23/17 08:11 03/24/17 05:40 Assess/Plan/Problems-Billing Assessment: Mr. Varela is a 71yo M with PMH of PAD, ischemic CMP with EF 20-25%, Vtach s/p ICD, Afib on AC, hypothyroidism, GERD, HTN, COPD, tobacco abuse, CAD, CKD, lung CA s/p radiation, who presented to ED after ICD shock. - Patient Problems (1) RHODA (acute kidney injury) Comment: - Patient with worsening renal function. - He was seen by Dr. Calle on 03/19/17 and had a normal renal US with no signs of obstruction. - Will repeat US today, but suspect he has some degree of ATN associated with poor perfusion secondary to Vtach. - Check UA, random urinary Na and Cr. - Patient already has significant edema and further IV hydration would worsen his respiratory status - will encourage PO fluid intake and monitor renal function. (2) ICD (implantable cardioverter-defibrillator) discharge Comment: - ICD interrogation confirms Vtach was the trigger of his ICD shock. - Cardiology input appreciated - already loaded with Amiodarone IV, will change to Amiodarone 200mg BID for 7 days, then 200mg daily. - No further episodes of Vtach - transfer to Telemetry. (3) Hypomagnesemia Comment: - Replete. (4) Hypokalemia Comment: - Replete. (5) CAD (coronary artery disease) Comment: - Troponin minimally elevated, no complaints of chest pain at this time , likely secondary to ICD shock. (6) Afib Comment: - In NSR now. - Continue Metoprolol. (7) COPD (chronic obstructive pulmonary disease) Comment: - Patient states his dyspnea is unchanged from baseline and he always has wheezing. - Add Levalbuterol. (8) Tobacco abuse Comment: - Patient understands the risks of tobacco use, including but not limited too worsening of lung, heart, vascular disease and cancer, but not willing to quit at this time. (9) DVT prophylaxis Comment: - INR still therapeutic. (10) Full code status Status and Disposition: Inpatient for management of Vtach requiring >48h for stabilization.
[2017-03-24 12:34] LABS: Magnesium 2.1 mg/dL (1.9-2.7)
[2017-03-24] MEDS: Clopidogrel TAB* 75 MG PO SCH (13:33)
--- NOTE | 2017-03-24 14:43 | RAD ---
Indication: Renal failure. Comparison: January 23, 2014 PET/CT. Technique: Ultrasound kidneys and urinary bladder. Report: 11.6 x 6.2 x 6.5 cm RIGHT kidney. 11.7 x 5.7 x 5.0 cm LEFT kidney. Normal bilateral renal cortical echogenicity. No conspicuous stones, hydronephrosis, or focal renal lesions. 167 mL estimated prevoid urinary bladder volume. 6.2 mm diffusely thickened urinary bladder wall. No focal bladder lesions evident. Bilateral ureteral jets documented. 7 mL estimated post void residual volume. Enlarged prostate with estimated volume of 63 mL. Largely decompressed gallbladder visualized with shadowing stones.. IMPRESSION: 1. Normal bilateral renal ultrasound. 2. Diffusely thickened urinary bladder wall which appears chronic based on comparison with the January 23, 2014 CT most consistent with trabeculation. 3. Enlarged prostate. 4. Cholelithiasis.
[2017-03-24] MEDS ORDERED: Warfarin TAB(*) 5 MG PO ONE (17:00)
[2017-03-25] MEDS ORDERED: Temazepam CAP* 15 MG PO SCH
[2017-03-25] MEDS: Levalbuterol HFA INHALER* 1 PUFF MDI INH SCH ×2 (01:49→08:07)
[2017-03-25] MEDS: Levothyroxine TAB* 88 MCG TAB PO SCH (05:09)
[2017-03-25 05:45] LABS: BUN/Creatinine Ratio 21.2 (8-20); EGFR African American 34.4 (>60); EGFR Non-African American 26.8 (>60); Potassium 3.9 mmol/L (3.5-5.0)
[2017-03-25 10:18] VITALS: BP 108/71
[2017-03-25] MEDS: Cephalexin CAP* 500 MG PO SCH (10:20)
[2017-03-25] MEDS: Clopidogrel TAB* 75 MG PO SCH (10:21)
[2017-03-25] MEDS: Nicotine PATCH 21 MG/24 HR* PATCH TRANSDERM SCH (10:21)
[2017-03-25] MEDS: Amiodarone TAB* 200 MG PO SCH (10:22)
[2017-03-25] MEDS: Hydrochlorothiazide TAB* 25 MG PO SCH (10:23)
[2017-03-25] MEDS: Atorvastatin* 80 MG TAB PO SCH (10:23)
[2017-03-25] MEDS: Metoprolol Succinate XL TAB* 25 MG PO SCH (10:24)
--- NOTE | 2017-03-26 07:25 | DS ---
CC: Dr. Zacarias; Dr. Roth in [place]; Dr. Koch; Dr. Dennis; Dr. Valladares DISCHARGE SUMMARY AGAINST MEDICAL ADVICE: DATE OF ADMISSION: 03/22/17 DATE OF DISCHARGE: 03/25/17 PRIMARY CARE PROVIDER: Dr. Zacarias. VASCULAR SURGEON: Dr. Roth in [place]. RADIATION ONCOLOGY: Dr. Koch. CARDIOLOGISTS: Dr. Dennis and Dr. Valladares. DISCHARGE DIAGNOSES: 1. Episode of ventricular tachycardia resulting in ICD shock. 2. Atrial fibrillation. 3. Hypomagnesemia. 4. Hypokalemia. 5. Acute kidney injury, likely acute tubular necrosis secondary to low-flow state from episode of ventricular tachycardia. SECONDARY DIAGNOSES: 1. History of peripheral arterial disease status post femoropopliteal bypass bilaterally as well as iliac tibial bypass on the right complicated by postoperative wound infection. Surgery was done in October 2016 and the graft was partially removed in January 2017. 2. Chronic right lower extremity wounds with chronic infection, being followed at the wound clinic. 3. History of ventricular tachycardia status post ICD placement. 4. Atrial fibrillation, on anticoagulation with warfarin. 5. Hypothyroidism. 6. Gastroesophageal reflux disease. 7. Hypertension. 8. Chronic obstructive pulmonary disease. 9. Tobacco abuse. 10. Hyperlipidemia. 11. Coronary artery disease status post coronary artery bypass graft in 1992 and status post multiple stents and angiopathies in subsequent years. 12. Ischemic cardiomyopathy with systolic congestive heart failure, ejection fraction 20% to 25%. 14. Chronic kidney disease, stage 3. 15. Lung cancer status post radiation. MEDICATION LIST: 1. Cholecalciferol 1000 units p.o. daily. 2. Levothyroxine 176 mcg p.o. daily. 3. Metoprolol succinate 12.5 mg p.o. b.i.d. 4. Lunesta 3 mg p.o. at bedtime. 5. Clopidogrel 75 mg p.o. daily. 6. Atorvastatin 80 mg p.o. daily. 7. Hydrochlorothiazide 25 mg p.o. daily. 8. Warfarin 5 mg p.o. on Mondays, Tuesdays, Wednesdays, Fridays, and Saturdays and 2.5 mg on Sundays and . 9. Cephalexin 500 mg p.o. t.i.d. New medications: 1. Levalbuterol HFA 2 puffs inhaled q.6 hours p.r.n. shortness of breath or wheezing. 2. Amiodarone 200 mg p.o. b.i.d. for 7 days then 200 mg daily. HOSPITAL COURSE: Mr. Varela is a 71-year-old male with a past medical history as stated above that presented to the emergency room with complaints his defibrillator had shocked him. As per HPI while in the ED, the patient became lightheaded, was found to be in ventricular tachycardia and this was terminated after his ICD fired again. It is reported that this episode was witnessed in the emergency room. For more details about his presentation, I refer you to his history and physical. He was initially admitted to the intensive care unit for further workup. He was found to be hypokalemic and hypomagnesemic and those electrolytes were repleted. He had minimally elevated troponins of 0.04, they are actually lower than his usual troponin levels. He was started on amiodarone drip and he was seen in consultation by Cardiology (Dr. Valladares). His impression is that the patient has a history of severe ischemic cardiomyopathy with ejection fraction of 20%, admitted to the hospital because of episode of dizziness and ICD defibrillation. The patient clearly had ventricular tachycardia, which required ICD discharge. The patient has not had any recent change in his functional status, no recent changes in medications, nothing to consider a precipitant of this ventricular tachycardia. Dr. Valladares's recommendation was to finish his amiodarone load and continue this medication for suppression of his atrial fibrillation and ventricular tachycardia. He also recommended continuation of his anticoagulation and low-dose beta-blockers. The patient had no further episodes of V-tach while in the hospital and although he had wheezing and was visibly dyspneic he states that this is his baseline at home. He states that he sleeps propped up on his couch and that his lungs are never clear. Despite this complaint, the patient continues to smoke a pack of cigarettes a day. On admission, the patient was found to have elevation of his creatinine at 1.5 for a baseline of 1.2. His creatinine continued to trend up. Abdomen and bladder ultrasound were performed and it showed normal bilateral renal ultrasound with diffusely thickened urinary bladder wall, which appears chronic compared to his CT from January 2014 most consistent with trabeculation. Enlarged prostate and incidental finding of cholelithiasis. The patient had had a recent ultrasound done at Dr. Calle's office, and I contacted him and he confirmed at that time the patient had no signs of obstruction. The impression is that the worsening of his renal function is likely secondary to ATN associated with poor flow state during his episode of V-tach. The patient's creatinine continued to rise and on the day of discharge it was 2.4. I did request a nephrology consultation with Dr. Comer, but the patient was adamant that he could not stay in the hospital any longer. We discussed the option of staying in the hospital to at least have the nephrology evaluation and be discharged after that but the patient stated that he could not await any longer. He is aware of the diagnosis of worsening renal function, and it is unclear at this time if his renal function will continue to worse or if his creatinine will start to trend down. He is aware that if he continues to worsen he may get to a point that he will need dialysis. I am especially concerned with his fluid status considering his significant heart disease and his low ejection fraction. If his renal function continues to worsen, the patient would develop fluid overload quickly. I did share my concerns with him and he verbalized understanding, but states that he can no longer stay in the hospital as he has personal issues to resolve at this time. I gave him a request to have his renal function checked on March 26 and March 29. I did contact his primary care provider, Dr. Zacarias and his nurse, Sue, so those results can be followed as outpatient, and the patient can be referred to nephrology as outpatient if needed. The patient is being discharged against medical advice today. PHYSICAL EXAMINATION: Vital Signs: Temperature 98.3, heart rate is 72, respiratory rate is 20, oxygen saturation is 94% on room air, and blood pressure is 108/71. General: The patient is a pleasant, elderly male, sitting up in a recliner in no acute distress. CVS: Normal S1 and S2. Regular rate and rhythm. Chest: Breath sounds present bilaterally with scattered wheezing and rhonchi. Extremities: There is bilateral lower extremity edema with chronic ischemic changes and 3 wounds on his right lower extremity. The most superior wound on his right thigh has purulent drainage. Neuro: He is alert and oriented x3, able to move all 4 extremities. DIET: Heart healthy diet, avoid caffeine. ACTIVITIES: As tolerated. DISPOSITION: To home against medical advice. DISPOSITION WHILE IN THE HOSPITAL: Inpatient. Please keep in mind this is a summarized version of this patient's hospital stay. If you need more information, please feel free to call me at [phone] or please obtain the full medical records. TIME SPENT: Approximately 50 minutes was spent to complete this discharge. [id number]/CPS #: [id number] STEPHD
== END 2017-03-25 12:20 | disposition left against medical advice (07) | DRG 308 ==
LOC: ED 19:13 → ICU 20:38 → MEDTELE 03-24 10:13
PROVIDERS: ADMIT Internal Medicine; ATTEND Internal Medicine
DX: I47.2 Ventricular tachycardia (principal); N17.0 Acute kidney failure with tubular necrosis; I50.42 Chronic combined systolic (congestive) and diastolic (congestive) heart failure; I13.0 Hypertensive heart and chronic kidney disease with heart failure and stage 1 through stage 4 chronic kidney disease, or unspecified chronic kidney disease; L97.819 Non-pressure chronic ulcer of other part of right lower leg with unspecified severity; I48.91 Unspecified atrial fibrillation; E11.22 Type 2 diabetes mellitus with diabetic chronic kidney disease; E11.51 Type 2 diabetes mellitus with diabetic peripheral angiopathy without gangrene; F17.210 Nicotine dependence, cigarettes, uncomplicated; I25.10 Atherosclerotic heart disease of native coronary artery without angina pectoris; I25.5 Ischemic cardiomyopathy; J44.9 Chronic obstructive pulmonary disease, unspecified; G47.30 Sleep apnea, unspecified; E03.9 Hypothyroidism, unspecified; E78.5 Hyperlipidemia, unspecified; N18.3 Chronic kidney disease, stage 3 (moderate); E11.40 Type 2 diabetes mellitus with diabetic neuropathy, unspecified; E11.622 Type 2 diabetes mellitus with other skin ulcer; E11.621 Type 2 diabetes mellitus with foot ulcer; L97.519 Non-pressure chronic ulcer of other part of right foot with unspecified severity; K80.20 Calculus of gallbladder without cholecystitis without obstruction; N32.89 Other specified disorders of bladder; N21.0 Calculus in bladder; E83.42 Hypomagnesemia; E87.6 Hypokalemia; Z85.118 Personal history of other malignant neoplasm of bronchus and lung; Z92.3 Personal history of irradiation; Z79.02 Long term (current) use of antithrombotics/antiplatelets; Z88.5 Allergy status to narcotic agent; Z88.8 Allergy status to other drugs, medicaments and biological substances; Z91.041 Radiographic dye allergy status; Z82.49 Family history of ischemic heart disease and other diseases of the circulatory system; Z95.810 Presence of automatic (implantable) cardiac defibrillator; I25.2 Old myocardial infarction; Z83.6 Family history of other diseases of the respiratory system
CPT/HCPCS: 36415; 71010; 76770; 80048; 80053; 81003; 81015; 82550; 82553; 83605; 83690; 83735; 83880; 84443; 84484; 85025; 85610; 85730; 86140; 87641; 90686; 93005; 94640; A9270-GY; J0282; J1940; J3475; J3480; J7615

== ENCOUNTER 2017-05-21 16:42 | Inpatient (IN) | payer MEDICARE, BC ==
--- NOTE | 2017-05-21 17:55 | RAD ---
Indication: Difficulty breathing. Renal failure and heart failure. Comparison: March 22, 2017 Technique: Upright AP 1730 hours Report: Median sternotomy wires, cardiomegaly, RIGHT atrial and RIGHT ventricular level pacemaker leads. Prominent ill-defined central pulmonary vasculature and perihilar opacities. RIGHT greater than LEFT basilar airspace consolidation and small RIGHT pleural effusion including fluid in the minor fissure. Negative for pneumothorax. IMPRESSION: The constellation of findings is most consistent with asymmetric pulmonary edema with associated small RIGHT pleural effusion.
[2017-05-21 17:56] LABS: Potassium 4.6 mmol/L (3.5-5.0)
[2017-05-21 17:57] LABS: BUN/Creatinine Ratio 24.3 (8-20); Calcium 9.6 mg/dL (8.6-10.3); EGFR African American 32.3 (>60); EGFR Non-African American 25.1 (>60); Total Bilirubin 1.4 mg/dL (0.2-1.0)
[2017-05-21 18:05] LABS: Troponin I 0.06 ng/mL (<0.04)
[2017-05-21 18:15] LABS: Hematocrit 42 % (42-52); Hemoglobin 13.1 g/dl (14.0-18.0); Mean Corpuscular HGB Conc 32 g/dl (31-36); Mean Corpuscular Hemoglobin 26 pg (27-31); Mean Corpuscular Volume 83 fL (80-94); Mean Platelet Volume 9 um3 (7.4-10.4); Red Cell Distribution Width 20 % (10.5-15); White Blood Count 7.8 10^3/ul (3.5-10.8)
[2017-05-21] MEDS ORDERED: Nitroglycerin 0.4 MG/HR PATCH* (10 MG) TRANSDERM ONE (18:27)
[2017-05-21] MEDS ORDERED: Furosemide IV* 10 MG/ML VIAL (40 MG) IV SLOW PU ONE ×2 (18:27→19:25)
[2017-05-21] MEDS ORDERED: Nitroglycerin TAB 0.4 MG* 0.4 MG TAB SL ONE (18:27)
[2017-05-21 18:44] LABS: Albumin 3.9 g/dL (3.2-5.2); Globulin 3.1 g/dL (2-4)
--- NOTE | 2017-05-21 18:57 | ED ---
Chet Greco Angela, scribed for Juan M Osman MD on 05/21/17 at 1731 . Shortness of Breath - HPI Summary HPI Summary: This pt is a 71 y/o male [facility], worsening over the last 3 weeks. Pt was sent over from Dr. Dennis's office for renal failure and heart failure. Pt reports he sleeping sitting down for the past 20 years. He is on 2L of home oxygen. He denies any chest pain. PMHx includes pacemaker, defibrillator. Pt's PCP is Dr. Zacarias. Pt does not take any nitroglycerin. - History of Current Complaint Chief Complaint: EDShortnessOfBreath Time Seen by Provider: 05/21/17 17:16 Hx Obtained From: Patient Onset/Duration: Lasting Weeks, Still Present Timing: Constant Dyspnea At: Rest Aggrevating Factors: Recumbent Position - Allergy/Home Medications Allergies/Adverse Reactions: Allergies Allergy/AdvReac Type Severity Reaction Status Date / Time Morphine Allergy Severe Hives Verified 12/13/14 19:50 Iodinated Diagnostic Agents Allergy Hives Verified 09/21/15 14:29 IVP dye Allergy Severe Hives Uncoded 12/13/14 19:50 PACEMAKER-NO MRIs Allergy NO MRIs Uncoded 06/25/15 11:55 PMH/Surg Hx/FS Hx/Imm Hx Endocrine/Hematology History: Reports: Hx Anticoagulant Therapy - COUMADIN PLAVIX AND ASA, Hx Diabetes - NO MEDS, Hx Thyroid Disease Denies: Other Endocrine/Hematological Disorders Cardiovascular History: Reports: Hx Angina, Hx Angioplasty, Hx Auto Implanted Cardiovert Defib - ICD 2004, Hx Coronary Artery Disease, Hx Hypercholesterolemia , Hx Hypertension, Hx Pacemaker/ICD - NO MRIs, Other Cardiovascular Problems/ Disorders - PVD; Ischemic Cardiomyopathy; ANTICOAGULANT THERAPY Denies: Hx Cardiac Arrest, Hx Congestive Heart Failure Comment Only: Hx Peripheral Vascular Disease - HAS HAD FEM POP BIPASS Respiratory History: Reports: Hx Chronic Obstructive Pulmonary Disease (COPD), Hx Pneumonia, Hx Seasonal Allergies, Hx Sleep Apnea, Other Respiratory Problems/ Disorders - CHRONIC SMOKER. 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 Denies: Hx Asthma GI History: Reports: Hx Gastroesophageal Reflux Disease Denies: Hx Ulcer, Other GI Disorders History: Reports: Hx Acute Renal Failure - HX, Hx Kidney Infection, Hx Kidney Stones - CURRENT WITH LT OBSTRUCTION IN URETER, Other Problems/ Disorders - CURRENT UROSEPSIS 12/01/2012 Denies: Hx Renal Disease Musculoskeletal History: Reports: Hx Back Problems Denies: Other Musculoskeletal History - SCIATICA Sensory History: Reports: Hx Contacts or Glasses Denies: Hx Hearing Aid, Other Sensory Impairments Opthamlomology History: Reports: Hx Contacts or Glasses Denies: Other Sensory Impairments Neurological History: Denies: Hx Dementia, Hx Seizures, Other Neuro Impairments/Disorders Psychiatric History: Denies: Hx Substance Abuse, Other Psychiatric Issues/Disorders - Cancer History Cancer Type, Location and Year: LUNG 2014 - Surgical History Surgery Procedure, Year, and Place: Bypass, 08/1991, Hx 5 ME's, Pacemaker 08/2011 - NO MRIs Hx Anesthesia Reactions: No - Immunization History Date of Tetanus Vaccine: Unk Date of Influenza Vaccine: July 2014 Infectious Disease History: No Infectious Disease History: Denies: Hx Hepatitis, Hx Human Immunodeficiency Virus (HIV), Hx Shingles, Hx Tuberculosis, Traveled Outside the [place] in Last 30 Days - Family History Known Family History: Positive: Hypertension, Other - Father of a pulmonary disease and mother of a brain tumor - Social History Alcohol Use: Rare Substance Use Type: Reports: None Smoking Status (MU): Current Every Day Smoker Type: Cigarettes Amount Used/How Often: 1PPD Length of Time of Smoking/Using Tobacco: 1966- current Review of Systems Negative: Fever, Chills Negative: Erythema Negative: Sore Throat Negative: Chest Pain Positive: Shortness Of Breath. Negative: Cough Negative: Abdominal Pain, Vomiting, Nausea Negative: dysuria, hematuria Negative: Myalgia, Edema - legs Negative: Rash Neurological: Negative - dizziness All Other Systems Reviewed And Are Negative: Yes Physical Exam - Summary Physical Exam Summary: Constitutional: Well-developed, Well-nourished, Alert. (-) Distressed Skin: Warm, Dry HENT: Normocephalic; Atraumatic Eyes: Conjunctiva normal Neck: Musculoskeletal ROM normal neck. (-) JVD, (-) Stridor, (-) Tracheal deviation Cardio: Rhythm regular, rate normal, Heart sounds normal; Intact distal pulses; The pedal pulses are 2+ and symmetric. Radial pulses are 2+ and symmetric. (-) Murmur Pulmonary/Chest wall: Effort normal. (-) Respiratory distress, (-) Wheezes, (-) Rales Abd: Soft, (-) Tenderness, (-) Distension, (-) Guarding, (-) Rebound Musculoskeletal: (-) Edema Lymph: (-) Cervical adenopathy Neuro: Alert, Oriented x3 Psych: Mood and affect Normal Triage Information Reviewed: Yes Vital Signs On Initial Exam: Initial Vitals Temp Pulse Resp BP Pulse Ox 97.9 F 107 32 104/77 92 05/21/17 16:43 05/21/17 16:43 05/21/17 16:43 05/21/17 16:43 05/21/17 16:43 Vital Signs Reviewed: Yes Diagnostics - Vital Signs Vital Signs Temp Pulse Resp BP Pulse Ox 05/21/17 16:43 97.9 F 107 32 104/77 92 - Laboratory Lab Results: Lab Results 05/21/17 05/21/17 05/21/17 Range/Units 17:35 17:35 17:35 WBC 7.8 (3.5-10.8) 10^3/ul RBC 5.00 (4.0-5.4) 10^6/ul Hgb 13.1 L (14.0-18.0) g/dl Hct 42 (42-52) % MCV 83 (80-94) fL MCH 26 L (27-31) pg MCHC 32 (31-36) g/dl RDW 20 H (10.5-15) % Plt Count 174 (150-450) 10^3/ul MPV 9 (7.4-10.4) um3 Neut % (Auto) 77.1 (38-83) % Lymph % (Auto) 13.0 L (25-47) % [place] % (Auto) 8.8 (1-9) % Eos % (Auto) 0.5 (0-6) % Baso % (Auto) 0.6 (0-2) % Absolute Neuts (auto) 6.0 (1.5-7.7) 10^3/ul Absolute Lymphs (auto) 1.0 (1.0-4.8) 10^3/ul Absolute Monos (auto) 0.7 (0-0.8) 10^3/ul Absolute Eos (auto) 0 (0-0.6) 10^3/ul Absolute Basos (auto) 0 (0-0.2) 10^3/ul Absolute Nucleated RBC 0 10^3/ul Nucleated RBC % 0 INR (Anticoag Therapy) (0.89-1.11) APTT (26.0-36.3) seconds Sodium 140 (133-145) mmol/L Potassium 4.6 (3.5-5.0) mmol/L Chloride 100 L (101-111) mmol/L Carbon Dioxide 32 (22-32) mmol/L Anion Gap 8 (2-11) mmol/L BUN 62 H (6-24) mg/dL Creatinine 2.55 H (0.67-1.17) mg/dL Est GFR ( Amer) 32.3 (>60) Est GFR (Non-Af Amer) 25.1 (>60) BUN/Creatinine Ratio 24.3 H (8-20) Glucose 163 H (70-100) mg/dL Lactic Acid (0.5-2.0) mmol/L Calcium 9.6 (8.6-10.3) mg/dL Total Bilirubin 1.40 H (0.2-1.0) mg/dL AST 17 (13-39) U/L ALT 17 (7-52) U/L Alkaline Phosphatase 77 (34-104) U/L Troponin I 0.06 H* (<0.04) ng/mL B-Natriuretic Peptide 1183 H ( - 100) pg/mL Total Protein 7.0 (6.4-8.9) g/dL Albumin 3.9 (3.2-5.2) g/dL Globulin 3.1 (2-4) g/dL Albumin/Globulin Ratio 1.3 (1-3) 05/21/17 05/21/17 Range/Units 17:35 17:35 WBC (3.5-10.8) 10^3/ul RBC (4.0-5.4) 10^6/ul Hgb (14.0-18.0) g/dl Hct (42-52) % MCV (80-94) fL MCH (27-31) pg MCHC (31-36) g/dl RDW (10.5-15) % Plt Count (150-450) 10^3/ul MPV (7.4-10.4) um3 Neut % (Auto) (38-83) % Lymph % (Auto) (25-47) % [place] % (Auto) (1-9) % Eos % (Auto) (0-6) % Baso % (Auto) (0-2) % Absolute Neuts (auto) (1.5-7.7) 10^3/ul Absolute Lymphs (auto) (1.0-4.8) 10^3/ul Absolute Monos (auto) (0-0.8) 10^3/ul Absolute Eos (auto) (0-0.6) 10^3/ul Absolute Basos (auto) (0-0.2) 10^3/ul Absolute Nucleated RBC 10^3/ul Nucleated RBC % INR (Anticoag Therapy) 2.00 H (0.89-1.11) APTT 31.7 (26.0-36.3) seconds Sodium (133-145) mmol/L Potassium (3.5-5.0) mmol/L Chloride (101-111) mmol/L Carbon Dioxide (22-32) mmol/L Anion Gap (2-11) mmol/L BUN (6-24) mg/dL Creatinine (0.67-1.17) mg/dL Est GFR ( Amer) (>60) Est GFR (Non-Af Amer) (>60) BUN/Creatinine Ratio (8-20) Glucose (70-100) mg/dL Lactic Acid 2.1 H* (0.5-2.0) mmol/L Calcium (8.6-10.3) mg/dL Total Bilirubin (0.2-1.0) mg/dL AST (13-39) U/L ALT (7-52) U/L Alkaline Phosphatase (34-104) U/L Troponin I (<0.04) ng/mL B-Natriuretic Peptide ( - 100) pg/mL Total Protein (6.4-8.9) g/dL Albumin (3.2-5.2) g/dL Globulin (2-4) g/dL Albumin/Globulin Ratio (1-3) Result Diagrams: 05/21/17 17:35 05/21/17 17:35 Lab Statement: Any lab studies that have been ordered have been reviewed, and results considered in the medical decision making process. - Radiology Chest XR Xray Interpretation: Positive (See Comments) - IMPRESSION: The constellation of findings is most consistent with asymmetric pulmonary edema with associated small RIGHT pleural effusion. ED physician has reviewed this radiology report and agrees. Radiology Interpretation Completed By: ED Physician - MD read: bilateral pulmonary edema. There is right basilar infiltrate., Radiologist - EKG 1752 Cardiac Rate: Tachycardia EKG Rhythm: Sinus Rhythm - at 112 bpm EKG Interpretation: No STEMI Course/Dx - Course Assessment/Plan: This pt is a 71 y/o male presenting to [facility] c/o SOB, worsening over the last 3 weeks. Pt was sent over from Dr. Dennis's office for renal failure and heart failure. Pt reports he sleeping sitting down for the past 20 years. He is on 2L of home oxygen. He denies any chest pain. PMHx includes pacemaker, defibrillator. Pt's PCP is Dr. Zacarias. Pt does not take any nitroglycerin. Lab work, EKG, and chest XR were obtained. Blood work is significant for glucose of 163, lactic acid of 2.1, troponin of 0.06. Chest XR shows the constellation of findings is most consistent with asymmetric pulmonary edema with associated small RIGHT pleural effusion. EKG shows sinus tachycardia, no STEMI. In the ED course, the pt received Lasix and nitroglycerin. - Diagnoses Provider Diagnoses: CHF exacerbation - Physician Notifications Discussed Care of Patient With: Gómez Araya Time Discussed With Above Provider: 18:31 Instructed by Provider To: Other - I discussed pt care with Dr. Degroot, who has agreed to admit the pt. Discharge - Discharge Plan Condition: Stable Disposition: ADMITTED TO [facility] Referrals: Raghu Zacarias MD [Primary Care Provider] - The documentation as recorded by the Chet garvin Angela accurately reflects the service I personally performed and the decisions made by , Juan M Osman MD.
[2017-05-21] MEDS ORDERED: Acetaminophen TAB* 325 MG PO PRN (19:25)
[2017-05-21] MEDS ORDERED: Ondansetron INJ* 2 MG/ML VIAL IV PRN (19:25)
[2017-05-21 21:36] LABS: Troponin I 0.06 ng/mL (<0.04)
[2017-05-21 21:58] LABS: EGFR African American 32.3 (>60); EGFR Non-African American 25.1 (>60)
[2017-05-21] MEDS: Cephalexin CAP* 500 MG PO SCH (22:12)
[2017-05-21] MEDS: Metoprolol Succinate XL TAB* 25 MG PO SCH ×2 (22:12→22:30)
[2017-05-21] MEDS ORDERED: Digoxin TAB* 0.25 MG PO ONE (22:26)
[2017-05-21] MEDS: Temazepam CAP* 15 MG PO PRN (22:57)
--- NOTE | 2017-05-22 04:44 | HP ---
CC: Dr. Zacarias; Dr. Dennis * HISTORY AND PHYSICAL: DATE OF ADMISSION: 05/21/17 PRIMARY CARE PROVIDER: Dr. Zacarias. ATTENDING PHYSICIAN WHILE IN THE HOSPITAL: Gómez Araya MD * (report being dictated by Gianni Mcarthur NP) CHIEF COMPLAINT: 1. Shortness of breath. 2. Weight gain. HISTORY OF PRESENT ILLNESS: Mr. Varela is a 71-year-old male patient with a history of CHF, peripheral arterial disease, V-tach, AFib, hypothyroidism, GERD , hypertension, COPD, hyperlipidemia, CAD, history of cardiomyopathy with the EF of 20% to 25%, CKD, and a history of lung cancer, status post radiation. He comes into the ER today stating that nearly over the last 4 weeks, he has had progressive worsening decline since his ICD went off in March. He was supposed to go to heart catheterization; however, this was held off due to the fact that he has a infected graft from one of fem-pop bypass in the right groin , so this was held. He went back to [facility] today, he was evaluated there in the outpatient setting. They had been trying to give him p.o. Lasix to help with fluid overload, but unfortunately despite being on Lasix this is not getting any better and it was felt that he would need IV diuretics to help further diurese him. The patient says that he always has orthopnea that this is not a new finding for him. He admits to having no chest pain. He says he is very short of breath particularly with any type of exertion. He says that he has just noticed a general decline. He denies having any chest pain now. There has been no URI type symptoms, no cough. He says he has been gaining weight over the last month and he just has not been doing well, so he came into the ED was evaluated. He appeared to be in florid failure and we were asked to evaluate for admission. PAST MEDICAL HISTORY: Significant for: 1. Peripheral arterial disease. 2. V-tach. 3. History of AFib. 4. Hypothyroidism. 5. GERD. 6. Hypertension. 7. COPD. 8. Hyperlipidemia. 9. CAD. 10. CHF with an EF of 20% to 25%. 11. CKD. 12. Lung cancer. PAST SURGICAL HISTORY: He has had fem-pop bypass. He also had an iliac tibial bypass and he now has an infected graft and he has been on chronic antibiotics for this. He has had a CABG. He has had multiple heart catheterizations and he has had a pacemaker/ICD placement. MEDICATIONS: Home meds according to the cardiology notes include: 1. Potassium 20 mEq p.o. daily. 2. Lasix 40 mg daily. 3. Keflex 500 mg p.o. t.i.d. 4. Lipitor 80 mg daily. 5. Xopenex 2 puffs inhaled every 6 hours as needed. 6. Lunesta 3 mg daily. 7. Plavix 75 mg daily. 8. Coumadin 2.5 mg daily. 9. Metoprolol succinate 12.5 mg p.o. b.i.d. 10. Synthroid 176 mcg p.o. daily. ALLERGIES TO MEDICATIONS: Include MORPHINE and IV DYE. FAMILY HISTORY: His mother had a history of a brain tumor. His father's history was reviewed and noncontributory. SOCIAL HISTORY: He is a pack a day smoker, he is still smoking currently, he has been smoking since he was a teenager. He denies any alcohol use. Surrogate decision maker is his friend, Melecio. REVIEW OF SYSTEMS: There is a significant weight gain, he does not say how much , but he says he has been chronically gaining weight. No double vision, no ear discharge, no rhinorrhea, no sore throat, no thyroid enlargement. Denied any chest pain. There is orthopnea. There is dyspnea on exertion. No nocturnal dyspnea. There is no abdominal pain. No nausea, no vomiting, no dysuria, no frequency, no seizure, no loss of consciousness, no pruritus, and no skin ulcerations. Review of 14 systems completed, all others negative. PHYSICAL EXAMINATION GENERAL: At this time, Mr. Varela is a 71-year-old male patient. He is chronically ill-appearing. He is sitting in the ER stretcher. He does not appear to be in any acute distress. VITAL SIGNS: Blood pressure 105/75, pulse 117, respirations were 20, O2 sat 92% , and temperature 97.9. HEENT: Head atraumatic. Eyes, EOMs intact. Sclerae anicteric, not pale. NECK: Supple. Throat; oral mucosa appears to be moist. No oropharyngeal erythema. LUNGS: He had crackles noted throughout bilaterally. Equal diaphragmatic expansion. HEART: Sounds S1 and S2. Irregularly irregular rate. No murmurs, rubs, or gallops. ABDOMEN: Soft. It was rounded. He did appear to have a moderate amount of ascites. EXTREMITIES: Pulses diminished in the lower extremities. He had +4 pitting edema essentially from his ankles up to his thighs. He is moving all 4 extremities. 5/5 strength. NEUROLOGIC: He is awake, alert, oriented x3. Tongue midline. Hospice Team Lead are equal. He had no gross focal deficits. SKIN: Intact. LABORATORY DATA: Revealed a WBC of 7.8, RBC of 5.0, hemoglobin of 13.1, hematocrit of 42, platelet count of 174. His INR was 2, PTT of 31.7. The sodium was 140, potassium of 4.6, chloride of 100, bicarb of 32, BUN 62, creatinine 2.55, his creatinine has been chronically climbing since March. He had a glucose of 163, potassium of 2.1, calcium 9.6, total bili 1.4, AST 17, ALT 17, alk phos 37, troponin 0.06. BNP of 1183, albumin of 3.9. Chest x-ray obtained today. The impression constellates the findings most consistent with asymmetric pulmonary edema and associated small right pleural effusion. He had an EKG obtained today that showed some sinus tachycardia, but to me appears to be atrial fibrillation with a rate of 112. He does have an intraventricular conduction delay. It is reviewed with previous EKGs, it is similar with the exception the rate now is much faster. Old medical records reviewed. ASSESSMENT AND PLAN: Mr. Varela is a 71-year-old male patient coming into the ER today with complaints of progressive worsening shortness of breath, increasing weight gain, found to be in significant CHF. He will be admitted under observation status for: 1. Congestive heart failure. I do not have a previous echo, the last one was from 2004, but I do not that his last EF was 20% to 25%. He certainly has a significant amount of heart failure and now he is getting into renal failure as well. He is now wanting to undergo dialysis as well. He actually says to me that he knows that his prognosis is overall poor and he would like to be kept comfortable. He is interested in hospice. At this point, we discussed the risks and benefits of diuresing him, as it could make his kidney function worse and he understands this risk, but he says he would like to be comfortable and that comfortable to him would be getting much fluid off as we can, trying to get his breathing better. So I am going to go and proceed with IV diuretics. I have been having 40 of Lasix, I will give him Bumex in the morning. Check daily weights. We will repeat that echo. I did put a palliative care consult in for the patient and will continue to follow him closely. We will consider touching base with Cardiology tomorrow if he is not responding to our diuretic therapy. 2. Peripheral arterial disease. Continue meds prescribed. 3. History of ventricular tachycardia. He has an ICD. He will be placed on telemetry. 4. Atrial fibrillation. His rate now is 112, we will continue his current medical regimen. 5. Hypothyroidism. Continue Synthroid. 6. Gastroesophageal reflux disease. Continue PPI therapy. 7. Hypertension. Continue meds as prescribed. 8. History of chronic obstructive pulmonary disease, we will continue p.r.n. albuterol. 9. Hyperlipidemia. Continue statin therapy. 10. Coronary artery disease. He is on Plavix, in addition to this also on a statin and beta mayra. We will continue. 11. Cardiomyopathy. Continue his current medical regimen and diuresing him. 12. Chronic kidney disease. I will monitor the creatinine closely in the setting of diuresis. 13. History of lung cancer. Follow up with primary. 14. DVT prophylaxis. INR is 2. Continue his Coumadin. 15. Code status. He wishes to be a DNR/DNI. Discussed this at length with the patient. 16. Fluids, electrolytes, and nutrition. He can have a heart-healthy diet. TIME SPENT: On this admission was approximately 60 minutes, greater than half the time spent [id number] with the patient obtaining my history and physical. Other half time spent going over the plan of care with the patient, implementing the plan of care. I discussed the plan of care with my attending Dr. Araya, he is in agreement. GIANNI MCARTHUR, NINA [id number]/[facility] #: [id number] JOSE
[2017-05-22] MEDS: Levothyroxine TAB* 88 MCG TAB PO SCH (06:09)
[2017-05-22 06:12] LABS: Hematocrit 38 % (42-52); Hemoglobin 12.1 g/dl (14.0-18.0); Mean Corpuscular HGB Conc 32 g/dl (31-36); Mean Corpuscular Hemoglobin 26 pg (27-31); Mean Corpuscular Volume 82 fL (80-94); Mean Platelet Volume 9 um3 (7.4-10.4); Red Blood Count 4.66 10^6/ul (4.0-5.4); Red Cell Distribution Width 20 % (10.5-15)
[2017-05-22 06:23] LABS: BUN/Creatinine Ratio 26.2 (8-20); Calcium 9.7 mg/dL (8.6-10.3); EGFR African American 32.1 (>60); Potassium 4.8 mmol/L (3.5-5.0)
[2017-05-22 06:32] LABS: Troponin I 0.05 ng/mL (<0.04)
[2017-05-22] MEDS: Metoprolol Succinate XL TAB* 25 MG PO SCH ×2 (08:56→20:47)
[2017-05-22] MEDS: Cephalexin CAP* 500 MG PO SCH ×3 (08:56→20:47)
[2017-05-22] MEDS: Clopidogrel TAB* 75 MG PO SCH (08:56)
[2017-05-22] MEDS: guaiFENesin ER TAB 600 MG PO SCH ×2 (08:56→20:47)
[2017-05-22] MEDS: Bumetanide IV* 0.25 MG/ML 4 ML VIAL SLOW PUSH SCH (08:57)
[2017-05-22] MEDS: Atorvastatin* 80 MG TAB PO SCH (08:57)
[2017-05-22] MEDS ORDERED: Furosemide IV* 10 MG/ML VIAL (40 MG) IV SLOW PU SCH (09:00)
[2017-05-22] MEDS: Levalbuterol 1.25MG/0.5ML NEB INH PRN ×2 (09:41→20:03)
--- NOTE | 2017-05-22 14:32 | PN ---
Subjective Date of Service: 05/22/17 Interval History: Patient seen this morning. Reports continued SOB which has been ongoing, not any worse. Has been urinating, not sure if it is significantly more than he had as an outpatient with oral lasix. Confirms he would like hospice/PC evaluation on Wednesday. Denies chest pain. Family History: Unchanged from Admission Social History: Unchanged from Admission Past Medical History: Unchanged from Admission Objective Active Medications: Acetaminophen (Tylenol Tab*) 650 mg PO Q4H PRN PRN Reason: FEVER/PAIN Atorvastatin Calcium (Lipitor*) 80 mg PO DAILY [facility] Last Admin: 05/22/17 08:57 Dose: 80 mg Bumetanide (Bumex*) 2 mg SLOW PUSH DAILY [facility] Last Admin: 05/22/17 08:57 Dose: 2 mg Bumetanide (Bumex*) 2 mg SLOW PUSH 1700 [facility] Cephalexin HCl (Keflex Cap*) 500 mg PO TID [facility] Last Admin: 05/22/17 13:33 Dose: 500 mg Clopidogrel Bisulfate (Plavix Tab*) 75 mg PO DAILY [facility] Last Admin: 05/22/17 08:56 Dose: 75 mg Digoxin (Lanoxin Tab*) 0.125 mg PO 1700 [facility] Guaifenesin (Mucinex*) 600 mg PO BID [facility] Last Admin: 05/22/17 08:56 Dose: 600 mg Levalbuterol HCl (Xopenex Hfa Inhaler*) 2 puff INH Q6H PRN PRN Reason: Wheezing/shortness of breath Levalbuterol HCl (Xopenex 1.25 Mg/0.5 Ml Neb.Anne*) 1.25 mg INH Q2H PRN PRN Reason: WHEEZING Last Admin: 05/22/17 09:41 Dose: 1.25 mg Levothyroxine Sodium (Synthroid Tab*) 176 mcg PO 0600 [facility] Last Admin: 05/22/17 06:09 Dose: 176 mcg Metolazone (Zaroxolyn Tab*) 5 mg PO 0830 [facility] Metolazone (Zaroxolyn Tab*) 5 mg PO ONCE ONE Stop: 05/22/17 16:31 Metoprolol Succinate (Toprol Xl Tab*) 12.5 mg PO BID [facility] Last Admin: 05/22/17 08:56 Dose: 12.5 mg Ondansetron HCl (Zofran Inj*) 4 mg IV Q6H PRN PRN Reason: NAUSEA Temazepam (Restoril Cap*) 15 mg PO BEDTIME PRN PRN Reason: INSOMNIA Last Admin: 05/21/17 22:57 Dose: 15 mg Warfarin Sodium (Coumadin Tab(*)) 2.5 mg PO 1700 [facility] PRN Reason: Protocol Vital Signs 05/21/17 05/21/17 05/21/17 19:30 20:00 20:30 Temperature Pulse Rate 115 120 116 Respiratory Rate Blood Pressure 113/84 124/88 110/70 (mmHg) O2 Sat by Pulse 96 96 94 Oximetry 05/21/17 05/21/17 05/21/17 21:02 21:06 22:10 Temperature 97.4 F Pulse Rate 112 Respiratory 22 22 Rate Blood Pressure 98/68 90/60 (mmHg) O2 Sat by Pulse 95 Oximetry 05/21/17 05/21/17 05/22/17 22:56 23:29 00:00 Temperature 99.5 F Pulse Rate 111 112 Respiratory 20 Rate Blood Pressure 99/65 (mmHg) O2 Sat by Pulse 96 96 Oximetry 05/22/17 05/22/17 05/22/17 06:02 07:23 08:00 Temperature 98.0 F 97.9 F Pulse Rate 107 110 Respiratory 24 20 24 Rate Blood Pressure 107/80 106/61 (mmHg) O2 Sat by Pulse 91 97 Oximetry 05/22/17 09:44 Temperature Pulse Rate 114 Respiratory 18 Rate Blood Pressure (mmHg) O2 Sat by Pulse 93 Oximetry Oxygen Devices in Use Now: Nasal Cannula Appearance: Elderly, M, sitting on bed in NAD Eyes: No Scleral Icterus Ears/Nose/Mouth/Throat: Mucous Membranes Moist Neck: NL Appearance and Movements; NL JVP Respiratory: Symmetrical Chest Expansion and Respiratory Effort, - - Rales in B/ L bases Cardiovascular: - - Tachycardia, IRIR Abdominal: NL Sounds; No Tenderness; No Distention Lymphatic: No Cervical Adenopathy Extremities: - - B/L LE edema to upper thighs Skin: - - Wound on R thigh with slight opening, LE wounds dressed Neurological: Alert and Oriented x 3 Result Diagrams: 05/22/17 05:46 05/22/17 05:46 Assess/Plan/Problems-Billing Assessment: Acute on chronic systolic CHF exacerbation in a 71 yo M with hx of systolic CHF , PAD, CAD, VTach with ICD fire 03/2017, hypothyroidism, GERD, hx of lung cancer - Patient Problems (1) Acute on chronic systolic (congestive) heart failure Current Visit: Yes Comment: Some response to IV Lasix and Bumex. Weight still up significantly from 03/2017 admission. Will continue with BID Bumex 2 mg IV and give Metolazone tonight prior to dose. Echo pending. Strict I/O, daily weights. Palliative Care consult pending. (2) Afib Current Visit: No Comment: Tachycardic. Will increase Metoprolol to 25 mg BID. Continue Warfarin and Digoxin. (3) CAD (coronary artery disease) Current Visit: No Comment: Continue Plavix, statin, beta-mayra. (4) CKD (chronic kidney disease) Current Visit: Yes Comment: Creatinine stable this admission so far with diuresis. Continue to monitor daily. (5) Wound infection Current Visit: Yes Comment: Continue outpatient Keflex (6) Hypothyroidism Current Visit: Yes Comment: Continue home synthroid (7) COPD (chronic obstructive pulmonary disease) Current Visit: No Comment: Prn xopenex (8) DVT prophylaxis Current Visit: No Comment: Coumadin Status and Disposition: Inpatient for IV diuresis
[2017-05-22] MEDS ORDERED: Metolazone TAB* 5 MG PO ONE (16:30)
[2017-05-22] MEDS ORDERED: Bumetanide IV* 0.25 MG/ML 4 ML VIAL SLOW PUSH SCH (17:00)
[2017-05-22] MEDS: Warfarin TAB(*) 5 MG PO SCH (17:18)
[2017-05-22] MEDS: Digoxin TAB* 0.125 MG PO SCH (17:19)
[2017-05-23] MEDS: Temazepam CAP* 15 MG PO PRN ×2 (01:42→22:58)
[2017-05-23 05:23] LABS: BUN/Creatinine Ratio 27.5 (8-20); Calcium 9.2 mg/dL (8.6-10.3); EGFR African American 35.3 (>60); EGFR Non-African American 27.4 (>60); Potassium 3.9 mmol/L (3.5-5.0)
[2017-05-23] MEDS: Levothyroxine TAB* 88 MCG TAB PO SCH (05:57)
[2017-05-23] MEDS: Atorvastatin* 80 MG TAB PO SCH (08:25)
[2017-05-23] MEDS: guaiFENesin ER TAB 600 MG PO SCH ×2 (08:25→20:38)
[2017-05-23] MEDS: Clopidogrel TAB* 75 MG PO SCH (08:25)
[2017-05-23] MEDS: Cephalexin CAP* 500 MG PO SCH ×3 (08:25→20:38)
[2017-05-23] MEDS: Metolazone TAB* 5 MG PO SCH (08:25)
[2017-05-23] MEDS: Metoprolol Succinate XL TAB* 25 MG PO SCH ×2 (08:25→20:39)
[2017-05-23] MEDS: Bumetanide IV* 0.25 MG/ML 4 ML VIAL SLOW PUSH SCH (09:18)
--- NOTE | 2017-05-23 11:40 | PN ---
Subjective Date of Service: 05/23/17 Interval History: Patient seen this morning. Reports good UOP yesterday after addition of Metolazone. Slept well, feeling significantly better today. Says breathing is easier and LE edema seem to be improving. Has been urinating frequently this morning as well after AM diuretic doses. Denies chest pain. Family History: Unchanged from Admission Social History: Unchanged from Admission Past Medical History: Unchanged from Admission Objective Active Medications: Acetaminophen (Tylenol Tab*) 650 mg PO Q4H PRN Atorvastatin Calcium (Lipitor*) 80 mg PO DAILY [facility] Bumetanide (Bumex*) 2 mg SLOW PUSH DAILY [facility] Bumetanide (Bumex*) 2 mg SLOW PUSH 1700 [facility] Cephalexin HCl (Keflex Cap*) 500 mg PO TID [facility] Clopidogrel Bisulfate (Plavix Tab*) 75 mg PO DAILY [facility] Digoxin (Lanoxin Tab*) 0.125 mg PO 1700 [facility] Guaifenesin (Mucinex*) 600 mg PO BID [facility] Levalbuterol HCl (Xopenex Hfa Inhaler*) 2 puff INH Q6H PRN Levalbuterol HCl (Xopenex 1.25 Mg/0.5 Ml Neb.Anne*) 1.25 mg INH Q2H PRN Levothyroxine Sodium (Synthroid Tab*) 176 mcg PO 0600 [facility] Metolazone (Zaroxolyn Tab*) 5 mg PO 0830 [facility] Metoprolol Succinate (Toprol Xl Tab*) 25 mg PO BID [facility] Ondansetron HCl (Zofran Inj*) 4 mg IV Q6H PRN Temazepam (Restoril Cap*) 15 mg PO BEDTIME PRN Warfarin Sodium (Coumadin Tab(*)) 2.5 mg PO 1700 [facility] Vital Signs 05/22/17 05/22/17 05/22/17 12:13 15:26 20:00 Temperature 98.2 F 97.9 F Pulse Rate 121 119 118 Respiratory 20 20 20 Rate Blood Pressure 107/75 118/66 (mmHg) O2 Sat by Pulse 98 95 95 Oximetry 05/22/17 05/22/17 05/23/17 20:14 23:32 00:00 Temperature 98.2 F 98.6 F Pulse Rate 68 122 Respiratory 20 20 Rate Blood Pressure 103/62 98/67 (mmHg) O2 Sat by Pulse 99 98 98 Oximetry 05/23/17 05/23/17 05/23/17 03:48 07:45 07:50 Temperature 98.4 F 98.5 F Pulse Rate 85 90 Respiratory 22 18 20 Rate Blood Pressure 90/67 110/72 (mmHg) O2 Sat by Pulse 94 96 Oximetry Oxygen Devices in Use Now: Nasal Cannula - 2L Appearance: Elderly, M, sitting on bed in NAD Eyes: No Scleral Icterus Ears/Nose/Mouth/Throat: Mucous Membranes Moist Neck: NL Appearance and Movements; NL JVP Respiratory: - - Absent BS in R base, some scattered wheezing, slight rales in L base Cardiovascular: - - IRIR Abdominal: NL Sounds; No Tenderness; No Distention Lymphatic: No Cervical Adenopathy Extremities: - - B/L LE edema to above knees (improved) Skin: - - Healing R medial thigh wound, RLE wounds dressed Result Diagrams: 05/22/17 05:46 05/23/17 04:49 Additional Lab and Data: . Assess/Plan/Problems-Billing Assessment: Acute on chronic systolic CHF exacerbation in a 71 yo M with hx of systolic CHF , PAD, CAD, VTach with ICD fire 03/2017, hypothyroidism, GERD, hx of lung cancer - Patient Problems (1) Acute on chronic systolic (congestive) heart failure Current Visit: Yes Comment: Good UOP with Bumex and Metolazone. Down 8 lbs from yesterday and already with signifcant UOP today from morning dose, will hold PM dose for now. Echo pending. Strict I/O, daily weights. Palliative Care consult pending. (2) Afib Current Visit: No Comment: HR better controlled with increased Metoprolol, continue 25 mg BID. Continue Warfarin and Digoxin. INR tomorrow (3) CAD (coronary artery disease) Current Visit: No Comment: Continue Plavix, statin, beta-mayra. (4) CKD (chronic kidney disease) Current Visit: Yes Comment: Creatinine stable this admission so far with diuresis. Continue to monitor daily. (5) Wound infection Current Visit: Yes Comment: Continue outpatient Keflex (6) Hypothyroidism Current Visit: Yes Comment: Continue home synthroid (7) COPD (chronic obstructive pulmonary disease) Current Visit: No Comment: Prn xopenex (8) DVT prophylaxis Current Visit: No Comment: Coumadin Status and Disposition: Inpatient for IV diuresis
[2017-05-23] MEDS ORDERED: Neosporin TOPICAL OINT* 1 EA PACKET TOPICAL SCH (16:00)
[2017-05-23 16:21] LABS: Magnesium 2.3 mg/dL (1.9-2.7)
[2017-05-23] MEDS: Digoxin TAB* 0.125 MG PO SCH (16:51)
[2017-05-23] MEDS: Warfarin TAB(*) 5 MG PO SCH (16:52)
[2017-05-23] MEDS: Neomycin/Polym/Bacit TOP OINT* 15 GM TOPICAL SCH ×3 (16:53→20:41)
[2017-05-24] MEDS: Levalbuterol HFA INHALER* 1 PUFF MDI INH PRN ×2 (00:33→09:28)
[2017-05-24 06:05] LABS: BUN/Creatinine Ratio 27.7 (8-20); Calcium 9.9 mg/dL (8.6-10.3); EGFR African American 35.4 (>60); EGFR Non-African American 27.6 (>60); Magnesium 2.1 mg/dL (1.9-2.7); Potassium 3.7 mmol/L (3.5-5.0)
[2017-05-24] MEDS: Levothyroxine TAB* 88 MCG TAB PO SCH (06:07)
[2017-05-24] MEDS ORDERED: Potassium Chlor TAB* 20 MEQ TAB.ER PO ONE (08:28)
[2017-05-24] MEDS: Clopidogrel TAB* 75 MG PO SCH (09:24)
[2017-05-24] MEDS: Cephalexin CAP* 500 MG PO SCH ×3 (09:25→21:28)
[2017-05-24] MEDS: Atorvastatin* 80 MG TAB PO SCH (09:25)
[2017-05-24] MEDS: guaiFENesin ER TAB 600 MG PO SCH ×2 (09:25→21:28)
[2017-05-24] MEDS: Metolazone TAB* 5 MG PO SCH (09:25)
[2017-05-24] MEDS: Metoprolol Succinate XL TAB* 25 MG PO SCH ×2 (09:26→21:34)
[2017-05-24] MEDS: Bumetanide IV* 0.25 MG/ML 4 ML VIAL SLOW PUSH SCH (11:01)
--- NOTE | 2017-05-24 12:52 | ECHO ---
Patient: RADHA MALAGON [facility] Rec#: [id number] : 1945 Date: 05/24/2017 Age: 71y Height: 180.34 cm / 71.0 in Weight: 104.33 kg / 229.9 lbs Sex: M BSA: 2.24 Room#: 440 Admit Date#: 05/21/2017 Type: Inpatient Referring: Gianni Mcarthur NP Reading: Adrian Valladares MD Medical Doctor Md: Angie Gurrola RDCS CC: Raghu Zacarias MD Transthoracic Echocardiogram Indication: CHF BP: 98/64 HR: 81 Rhythm: Paced Findings History: CHF, PAD s/p fem-pop bypass, iliac-tibial bypass secondary to infected graft, GERD, HTN, COPD, HLD, CAD, cardiomyopathy with EF 20-25%, s/p CABG, CKD, lung cancer, pacer/ICD, current smoker. Technical Comments: The study quality is fair. Completed at 0830. Left Ventricle: The left ventricular chamber size is moderately dilated. Mild concentric left ventricular hypertrophy is observed. There is global hypokinesis of the left ventricle with minor regional variation. There is severely decreased left ventricular systolic function. The estimated ejection fraction is 20-25%. There is abnormal ventricular septal wall motion consistent with right ventricular pacemaker. The assessment of diastolic function is non-diagnostic. Left Atrium: The left atrium is mild to moderately dilated. Right Ventricle: The right ventricle is mildly dilated. The right ventricular global systolic function is moderately reduced. A pacemaker wire is visualized in the right ventricle. Right Atrium: The right atrial cavity size is severely dilated. A pacemaker wire is visualized in the right atrium. Aortic Valve: The aortic valve is trileaflet. The aortic valve leaflets are mildly thickened. There is no evidence of aortic regurgitation. There is no evidence of aortic stenosis. Mitral Valve: There is mitral annular calcification. The mitral valve leaflets are mildly thickened. There is moderate mitral regurgitation. There is no evidence of mitral stenosis. Tricuspid Valve: The tricuspid valve leaflets are mildly thickened. There is mild tricuspid regurgitation. The right ventricular systolic pressure is estimated at 47 mmHg. There is evidence of moderate pulmonary hypertension. There is no tricuspid stenosis. Pulmonic Valve: The pulmonic valve appears normal. There is a trace pulmonic regurgitation. There is no pulmonic stenosis. Pericardium: There is no significant pericardial effusion. Aorta: There is mild dilatation of the ascending aorta. There is no dilatation of the aortic arch. There is mild dilatation of the aortic root. Pulmonary Artery: The main pulmonary artery appears normal. Venous: The inferior vena cava is dilated. There is an approximate 50% respiratory change in the inferior vena cava dimension. Summary: There are no significant changes when compared to the previous study done on 10/09/16 Conclusions There is global hypokinesis of the left ventricle with minor regional variation. There is severely decreased left ventricular systolic function. The estimated ejection fraction is 20-25%. The assessment of diastolic function is non-diagnostic. The right ventricular global systolic function is moderately reduced. A pacemaker wire is visualized in the right ventricle. There is no evidence of aortic regurgitation. There is no evidence of aortic stenosis. There is moderate mitral regurgitation. There is mild tricuspid regurgitation. There is evidence of moderate pulmonary hypertension. There is no significant pericardial effusion. There are no significant changes when compared to the previous study done on 10/09/16 Measurements Name Value Normal Range RVIDd (AP) 2D 3.8 cm (0.9 - 2.6) RVDdMajor (2D) 3.7 cm (2.2 - 4.4) RAd ISD 4CH 6.9 cm (3.4 - 4.9) RA (A4C)W 5.6 cm (2.9 - 4.6) IVSd (2D) 1.2 cm (0.6 - 1) LVPWd (2D) 1.1 cm (0.6 - 1) LVIDd (2D) 7 cm (3.6 - 5.4) LVIDs (2D) 5.7 cm - LV FS (2D) 20 % (25 - 45) Aortic Annulus 2.2 cm (1.4 - 2.6) Ao root diameter (2D) 3.6 cm (2.1 - 3.5) Ascending Ao 3.8 cm (2.1 - 3.4) Aortic arch 3.2 cm (1.8 - 3.4) LA dimension (AP) 2D 4.9 cm (2.3 - 3.8) LAd ISD 4CH 6.3 cm (2.9 - 5.3) LA ISD 4CH W 4.6 cm (2.5 - 4.5) Name Value Normal Range LA ESV SP 4CH (A/L) 72 ml - LA ESV SP 2CH (A/L) 79 ml - LA ESV BP (A/L) 76 ml - LA ESV BP (A/L) index 34 ml/m2 - LA ESV SP 4CH (MOD) 70 ml - LA ESV SP 2CH (MOD) 79 ml - Name Value Normal Range MV E-wave Vmax 1.15 m/sec - MV deceleration time 134.5 msec - LV septal e' Vmax 0.05 m/sec - LV lateral e' Vmax 0.04 m/sec - LV E:e' septal ratio 23 ratio - LV E:e' lateral ratio 28.75 ratio - Name Value Normal Range AV Vmax 1.04 m/sec - AV VTI 16.45 cm - AV peak gradient 4.36 mmHg - AV mean gradient 2.46 mmHg - LVOT Vmax 0.69 m/sec - LVOT VTI 11.05 cm - LVOT peak gradient 1.95 mmHg - LVOT mean gradient 1.05 mmHg - ERIK Vmax 0.87 m/sec - Name Value Normal Range MR flow (PISA) 90 ml/sec - MR PISA radius 0.5 cm - MR alias Vmax 57.4 cm/sec - Name Value Normal Range TR Vmax 2.6 m/sec - TR peak gradient 27 mmHg - RAP 20 mmHg - RVSP 47 mmHg - IVC diameter 3.2 cm - Name Value Normal Range PV Vmax 0.59 m/sec - PV peak gradient 1.45 mmHg -
[2017-05-24] MEDS: Neomycin/Polym/Bacit TOP OINT* 15 GM TOPICAL SCH ×2 (16:18→21:34)
[2017-05-24] MEDS: Digoxin TAB* 0.125 MG PO SCH (16:48)
[2017-05-24] MEDS: Warfarin TAB(*) 2.5 MG PO SCH (16:48)
[2017-05-24] MEDS: Temazepam CAP* 15 MG PO PRN (23:08)
[2017-05-25] MEDS: Levothyroxine TAB* 88 MCG TAB PO SCH (05:36)
[2017-05-25 06:01] LABS: Hematocrit 37 % (42-52); Hemoglobin 11.8 g/dl (14.0-18.0); Mean Corpuscular HGB Conc 32 g/dl (31-36); Mean Corpuscular Hemoglobin 26 pg (27-31); Mean Corpuscular Volume 81 fL (80-94); Mean Platelet Volume 8 um3 (7.4-10.4); Red Blood Count 4.56 10^6/ul (4.0-5.4); Red Cell Distribution Width 19 % (10.5-15); White Blood Count 7.3 10^3/ul (3.5-10.8)
[2017-05-25 06:15] LABS: BUN/Creatinine Ratio 29.4 (8-20); Calcium 9.7 mg/dL (8.6-10.3); EGFR African American 40.1 (>60); EGFR Non-African American 31.2 (>60); Potassium 3.7 mmol/L (3.5-5.0)
[2017-05-25] MEDS: Metolazone TAB* 5 MG PO SCH (08:11)
[2017-05-25] MEDS: Clopidogrel TAB* 75 MG PO SCH (08:11)
[2017-05-25] MEDS: Atorvastatin* 80 MG TAB PO SCH (08:12)
[2017-05-25] MEDS: Cephalexin CAP* 500 MG PO SCH ×3 (08:12→22:20)
[2017-05-25] MEDS: guaiFENesin ER TAB 600 MG PO SCH ×2 (08:12→22:20)
[2017-05-25] MEDS: Metoprolol Succinate XL TAB* 25 MG PO SCH ×2 (08:12→22:20)
[2017-05-25] MEDS: Neomycin/Polym/Bacit TOP OINT* 15 GM TOPICAL SCH ×2 (08:55→22:21)
[2017-05-25] MEDS: Bumetanide IV* 0.25 MG/ML 4 ML VIAL SLOW PUSH SCH (08:55)
--- NOTE | 2017-05-25 14:06 | PN ---
Subjective Date of Service: 05/25/17 Interval History: Patient seen this afternoon. Continues to have good UOP and weight loss, notices improvement in his LEs. Has had some bleeding from his R thigh wound. Reviewed MOLST with the patient who wants to be comfort measures/DNH Family History: Unchanged from Admission Social History: Unchanged from Admission Past Medical History: Unchanged from Admission Objective Active Medications: Acetaminophen (Tylenol Tab*) 650 mg PO Q4H PRN Atorvastatin Calcium (Lipitor*) 80 mg PO DAILY [facility] Bumetanide (Bumex*) 2 mg SLOW PUSH DAILY [facility] Cephalexin HCl (Keflex Cap*) 500 mg PO TID [facility] Clopidogrel Bisulfate (Plavix Tab*) 75 mg PO DAILY [facility] Digoxin (Lanoxin Tab*) 0.125 mg PO 1700 [facility] Guaifenesin (Mucinex*) 600 mg PO BID [facility] Levalbuterol HCl (Xopenex Hfa Inhaler*) 2 puff INH Q6H PRN Levalbuterol HCl (Xopenex 1.25 Mg/0.5 Ml Neb.Anne*) 1.25 mg INH Q2H PRN Levothyroxine Sodium (Synthroid Tab*) 176 mcg PO 0600 [facility] Metolazone (Zaroxolyn Tab*) 5 mg PO 0830 [facility] Metoprolol Succinate (Toprol Xl Tab*) 25 mg PO 0900,2100 [facility] Neomycin/Polymyxin/Bacitracin (Neosporin Top Oint Tube*) 1 applic TOPICAL BID [facility] Ondansetron HCl (Zofran Inj*) 4 mg IV Q6H PRN Temazepam (Restoril Cap*) 15 mg PO BEDTIME PRN Warfarin Sodium (Coumadin Tab(*)) 2.5 mg PO 1700 [facility] Vital Signs 05/24/17 05/24/17 05/24/17 15:24 15:48 16:48 Temperature 97.8 F Pulse Rate 83 80 100 Respiratory 17 14 Rate Blood Pressure 107/63 (mmHg) O2 Sat by Pulse 95 94 Oximetry 05/24/17 05/24/17 05/24/17 19:25 20:00 21:26 Temperature 98.4 F Pulse Rate 80 98 Respiratory 16 16 Rate Blood Pressure 88/67 91/55 (mmHg) O2 Sat by Pulse 94 Oximetry 05/24/17 05/25/17 05/25/17 23:30 04:15 07:22 Temperature 98.4 F 97.9 F 98.3 F Pulse Rate 80 80 80 Respiratory 16 16 18 Rate Blood Pressure 98/66 92/56 101/66 (mmHg) O2 Sat by Pulse 97 95 95 Oximetry Oxygen Devices in Use Now: Nasal Cannula Appearance: Elderly, M, sitting in bed in NAD Eyes: No Scleral Icterus Ears/Nose/Mouth/Throat: Mucous Membranes Moist Neck: NL Appearance and Movements; NL JVP Extremities: - - B/L LE edema below the knees, L>R Skin: - - R thigh with some bleeding when wound expressed Neurological: Alert and Oriented x 3 Result Diagrams: 05/25/17 05:30 05/25/17 05:30 Additional Lab and Data: . 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 Echo shows EF of 20-25%, no change from 10/2016. Strict I/O, daily weights. Patient eligible for hospice and would like to be comfort measures (2) Afib Current Visit: No Comment: Metoprolol 25 mg BID. Continue Warfarin and Digoxin for now. (3) CAD (coronary artery disease) Current Visit: No Comment: Continue Plavix, statin, beta-mayra. (4) CKD (chronic kidney disease) Current Visit: Yes Comment: Creatinine stable this admission so far with diuresis (5) Wound infection Current Visit: Yes Comment: Continue outpatient Keflex (6) Hypothyroidism Current Visit: Yes Comment: Continue home synthroid (7) COPD (chronic obstructive pulmonary disease) Current Visit: No Comment: Prn xopenex (8) DVT prophylaxis Current Visit: No Comment: Coumadin Status and Disposition: Inpatient for IV diuresis, should be medically ready for discharge in next 1-2 days
[2017-05-25] MEDS: Warfarin TAB(*) 2.5 MG PO SCH (17:34)
[2017-05-25] MEDS: Digoxin TAB* 0.125 MG PO SCH (17:34)
[2017-05-25] MEDS: Temazepam CAP* 15 MG PO PRN (22:24)
[2017-05-26] MEDS: Levothyroxine TAB* 88 MCG TAB PO SCH (07:06)
[2017-05-26] MEDS: Metolazone TAB* 5 MG PO SCH (08:49)
[2017-05-26] MEDS ORDERED: Torsemide TAB* 20 MG ONE (08:54)
[2017-05-26] MEDS: Clopidogrel TAB* 75 MG PO SCH (08:55)
[2017-05-26] MEDS: Atorvastatin* 80 MG TAB PO SCH (08:55)
[2017-05-26] MEDS: Cephalexin CAP* 500 MG PO SCH ×3 (08:55→20:58)
[2017-05-26] MEDS: Metoprolol Succinate XL TAB* 25 MG PO SCH ×2 (08:55→20:59)
[2017-05-26] MEDS: guaiFENesin ER TAB 600 MG PO SCH ×2 (08:55→20:58)
[2017-05-26] MEDS: Torsemide TAB* 20 MG PO SCH (08:55)
[2017-05-26] MEDS: Neomycin/Polym/Bacit TOP OINT* 15 GM TOPICAL SCH ×2 (08:56→21:00)
--- NOTE | 2017-05-26 13:05 | PN ---
Subjective Date of Service: 05/26/17 Interval History: Patient seen this morning. Reports breathing is stable, noted that UOP was a bit less today with oral Torsemide. Looking at options for SNF. Family History: Unchanged from Admission Social History: Unchanged from Admission Past Medical History: Unchanged from Admission Objective Active Medications: Acetaminophen (Tylenol Tab*) 650 mg PO Q4H PRN Atorvastatin Calcium (Lipitor*) 80 mg PO DAILY [facility] Cephalexin HCl (Keflex Cap*) 500 mg PO TID [facility] Clopidogrel Bisulfate (Plavix Tab*) 75 mg PO DAILY [facility] Digoxin (Lanoxin Tab*) 0.125 mg PO 1700 [facility] Guaifenesin (Mucinex*) 600 mg PO BID [facility] Levalbuterol HCl (Xopenex Hfa Inhaler*) 2 puff INH Q6H PRN Levalbuterol HCl (Xopenex 1.25 Mg/0.5 Ml Neb.Anne*) 1.25 mg INH Q2H PRN Levothyroxine Sodium (Synthroid Tab*) 176 mcg PO 0600 [facility] Metoprolol Succinate (Toprol Xl Tab*) 25 mg PO 0900,2100 [facility] Neomycin/Polymyxin/Bacitracin (Neosporin Top Oint Tube*) 1 applic TOPICAL BID [facility] Ondansetron HCl (Zofran Inj*) 4 mg IV Q6H PRN Temazepam (Restoril Cap*) 15 mg PO BEDTIME PRN Torsemide (Demadex*) 40 mg PO DAILY [facility] Warfarin Sodium (Coumadin Tab(*)) 2.5 mg PO 1700 [facility] Vital Signs 05/25/17 05/25/17 05/25/17 15:36 17:34 19:23 Temperature 98.1 F 96.1 F Pulse Rate 82 72 80 Respiratory 20 20 Rate Blood Pressure 108/68 93/74 (mmHg) O2 Sat by Pulse 95 97 Oximetry 05/25/17 05/25/17 05/26/17 20:00 23:10 01:42 Temperature 98.0 F Pulse Rate 82 80 Respiratory 20 20 20 Rate Blood Pressure 121/63 (mmHg) O2 Sat by Pulse 97 97 Oximetry 05/26/17 05/26/17 05/26/17 07:24 07:49 08:23 Temperature 98.8 F Pulse Rate 85 Respiratory 18 18 Rate Blood Pressure 109/62 (mmHg) O2 Sat by Pulse 94 94 Oximetry Oxygen Devices in Use Now: Nasal Cannula - 2L Appearance: Elderly, M, sitting in bed in NAD Eyes: No Scleral Icterus Ears/Nose/Mouth/Throat: Mucous Membranes Moist Neck: NL Appearance and Movements; NL JVP Respiratory: Symmetrical Chest Expansion and Respiratory Effort, - - Rales in B/ L bases Cardiovascular: NL Sounds; No Murmurs; No JVD, RRR Abdominal: NL Sounds; No Tenderness; No Distention Lymphatic: No Cervical Adenopathy Extremities: - - B/L LE edema, did not evaluate wounds Skin: No Rash or Ulcers Neurological: Alert and Oriented x 3 Result Diagrams: 05/25/17 05:30 05/25/17 05:30 Additional Lab and Data: . 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 Would like ICD disabled, spoke with Dr. Quinones who will do that today. Would like to continue his medications as they are right now. (2) Acute on chronic systolic (congestive) heart failure Current Visit: Yes Comment: Transition to oral Torsemide 40 mg daily, can decide to redose tonight or possibly add on Metolazone tomorrow. Echo shows EF of 20-25%, no change from 2016. Strict I/O, daily weights. Patient eligible for hospice and would like to be comfort measures (3) Afib Current Visit: No Comment: Metoprolol 25 mg BID. Continue Warfarin and Digoxin for now. (4) CAD (coronary artery disease) Current Visit: No Comment: Continue Plavix, statin, beta-mayra. (5) CKD (chronic kidney disease) Current Visit: Yes Comment: Stopped checking with comfort measures (6) Wound infection Current Visit: Yes Comment: Continue outpatient Keflex (7) Hypothyroidism Current Visit: Yes Comment: Continue home synthroid (8) COPD (chronic obstructive pulmonary disease) Current Visit: No Comment: Prn xopenex (9) DVT prophylaxis Current Visit: No Comment: Coumadin Status and Disposition: Inpatient, now comfort care, awaiting placement
[2017-05-26] MEDS ORDERED: Torsemide TAB* 20 MG PO ONE (16:03)
[2017-05-26] MEDS: Warfarin TAB(*) 2.5 MG PO SCH (16:04)
[2017-05-26] MEDS: Digoxin TAB* 0.125 MG PO SCH (16:04)
--- NOTE | 2017-05-26 20:19 | CARD ---
CC: Dr. Dennis; Hospitalist PROCEDURE: DATE OF PROCEDURE: 05/26/17 PRIMARY CARE PHYSICIAN: Dr. Zacarias. PROCEDURE: Defibrillator interrogation and reprograming. INDICATION: Dr. Holder requested the defibrillator portion of his pacer defibrillator be turned off. I verified with the patient that he understood that and was agreeable to the defibrillator being turned off and that he understood the pacemaker portion would continue to work and he was amenable to proceeding. The patient has a [employer] dual chamber pacer defibrillator (Model [id number]). He was heraclio programmed at DDD at 60 beats a minute and at the time of interrogation, appeared to be in atrial flutter (vs afib) with an atrial cycle length of approximately 300 milliseconds and no pacing required. Tachyarrhythmias were turned off (VT and VFib). Other parameters were left unchanged. He had had no VF or VT episodes since his last interrogation on 03/21. CONCLUSION: The patient is in atrial flutter. His lower rate for pacing is programmed at 60 beats a minute. He has no ICD defibrillator function turned on at this time. [id number]/[facility] #: [id number] MTDD
[2017-05-26] MEDS: Temazepam CAP* 15 MG PO PRN (22:29)
[2017-05-27] MEDS: Levothyroxine TAB* 88 MCG TAB PO SCH (06:10)
[2017-05-27] MEDS: Torsemide TAB* 20 MG PO SCH ×2 (08:09→09:38)
[2017-05-27] MEDS: Atorvastatin* 80 MG TAB PO SCH (08:09)
[2017-05-27] MEDS: Clopidogrel TAB* 75 MG PO SCH (08:09)
[2017-05-27] MEDS: Cephalexin CAP* 500 MG PO SCH ×3 (08:09→21:26)
[2017-05-27] MEDS: guaiFENesin ER TAB 600 MG PO SCH ×2 (08:09→21:26)
[2017-05-27] MEDS: Metoprolol Succinate XL TAB* 25 MG PO SCH ×2 (08:10→21:26)
[2017-05-27] MEDS: Neomycin/Polym/Bacit TOP OINT* 15 GM TOPICAL SCH ×2 (08:11→21:29)
--- NOTE | 2017-05-27 12:29 | PN ---
Subjective Date of Service: 05/27/17 Interval History: Patient seen this morning. No new symptoms, reports breathing is good. Diuresed quite a bit yesterday with BID Torsemide. Still having some bleeding from the R thigh wound. Family History: Unchanged from Admission Social History: Unchanged from Admission Past Medical History: Unchanged from Admission Objective Active Medications: Acetaminophen (Tylenol Tab*) 650 mg PO Q4H PRN Atorvastatin Calcium (Lipitor*) 80 mg PO DAILY [facility] Cephalexin HCl (Keflex Cap*) 500 mg PO TID [facility] Clopidogrel Bisulfate (Plavix Tab*) 75 mg PO DAILY [facility] Digoxin (Lanoxin Tab*) 0.125 mg PO 1700 [facility] Guaifenesin (Mucinex*) 600 mg PO BID [facility] Levalbuterol HCl (Xopenex Hfa Inhaler*) 2 puff INH Q6H PRN Levalbuterol HCl (Xopenex 1.25 Mg/0.5 Ml Neb.Anne*) 1.25 mg INH Q2H PRN Levothyroxine Sodium (Synthroid Tab*) 176 mcg PO 0600 [facility] Metoprolol Succinate (Toprol Xl Tab*) 25 mg PO 0900,2100 [facility] Neomycin/Polymyxin/Bacitracin (Neosporin Top Oint Tube*) 1 applic TOPICAL BID [facility] Ondansetron HCl (Zofran Inj*) 4 mg IV Q6H PRN Temazepam (Restoril Cap*) 15 mg PO BEDTIME PRN Torsemide (Demadex*) 30 mg PO DAILY [facility] Warfarin Sodium (Coumadin Tab(*)) 2.5 mg PO 1700 [facility] Vital Signs 05/26/17 05/26/17 05/26/17 15:52 16:04 20:00 Temperature 99.3 F 99.0 F Pulse Rate 85 92 95 Respiratory 16 22 Rate Blood Pressure 93/64 111/58 (mmHg) O2 Sat by Pulse 97 98 Oximetry 05/26/17 05/27/17 05/27/17 23:38 01:12 06:51 Temperature 98.5 F Pulse Rate 80 88 Respiratory 16 20 18 Rate Blood Pressure 101/62 (mmHg) O2 Sat by Pulse 97 97 Oximetry 05/27/17 08:09 Temperature 98.9 F Pulse Rate 79 Respiratory 16 Rate Blood Pressure 108/60 (mmHg) O2 Sat by Pulse 91 Oximetry Oxygen Devices in Use Now: Nasal Cannula Appearance: Elderly, M, sitting on bed in NAD Eyes: No Scleral Icterus Ears/Nose/Mouth/Throat: Mucous Membranes Moist Neck: NL Appearance and Movements; NL JVP Respiratory: Symmetrical Chest Expansion and Respiratory Effort, - - Rales in B/ L bases Cardiovascular: NL Sounds; No Murmurs; No JVD, RRR Abdominal: NL Sounds; No Tenderness; No Distention Lymphatic: No Cervical Adenopathy Extremities: - - LE edema, L>R, improved Skin: - - Did not assess RLE wounds Neurological: Alert and Oriented x 3 Result Diagrams: 05/25/17 05:30 05/25/17 05:30 Additional Lab and Data: . 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 ICD disable by Dr. Quinones on 05/26. Would like to continue his medications as they are right now. (2) Acute on chronic systolic (congestive) heart failure Current Visit: Yes Comment: Continue Torsemide, received 40 BID yesterday, will change to 30 mg daily today. Echo shows EF of 20-25%, no change from 10/2016. Strict I/O, daily weights. Patient eligible for hospice and would like to be comfort measures (3) Afib Current Visit: No Comment: Metoprolol 25 mg BID. Continue Warfarin and Digoxin for now. (4) CAD (coronary artery disease) Current Visit: No Comment: Continue Plavix, statin, beta-mayra. (5) CKD (chronic kidney disease) Current Visit: Yes Comment: Stopped checking with comfort measures (6) Wound infection Current Visit: Yes Comment: Continue outpatient Keflex (7) Hypothyroidism Current Visit: Yes Comment: Continue home synthroid (8) COPD (chronic obstructive pulmonary disease) Current Visit: No Comment: Prn xopenex (9) DVT prophylaxis Current Visit: No Comment: Coumadin Status and Disposition: Inpatient, now comfort care, awaiting placement
[2017-05-27] MEDS: Warfarin TAB(*) 2.5 MG PO SCH (16:18)
[2017-05-27] MEDS: Digoxin TAB* 0.125 MG PO SCH (16:18)
[2017-05-27] MEDS: Temazepam CAP* 15 MG PO PRN (22:44)
[2017-05-28] MEDS: Levothyroxine TAB* 88 MCG TAB PO SCH (06:32)
[2017-05-28] MEDS: guaiFENesin ER TAB 600 MG PO SCH ×2 (10:03→21:10)
[2017-05-28] MEDS: Clopidogrel TAB* 75 MG PO SCH (10:03)
[2017-05-28] MEDS: Cephalexin CAP* 500 MG PO SCH ×3 (10:03→21:10)
[2017-05-28] MEDS: Atorvastatin* 80 MG TAB PO SCH (10:03)
[2017-05-28] MEDS: Metoprolol Succinate XL TAB* 25 MG PO SCH ×2 (10:03→21:10)
[2017-05-28] MEDS: Torsemide TAB* 20 MG PO SCH (12:18)
--- NOTE | 2017-05-28 12:23 | PN ---
Subjective Date of Service: 05/28/17 Interval History: Pt is feeling ok. He states his breathing is comfortable. He has been having a dry cough but his O2 is not humidified. He denies any new pain-he has pain in his R foot/ankle that is chronic. He tells me his R thigh wound started bleeding yesterday after being in the shower. Previously he noted a milky drainage from the area. There is no pain associated with R thigh wound. Family History: Unchanged from Admission Social History: Unchanged from Admission Past Medical History: Unchanged from Admission Objective Active Medications: Acetaminophen (Tylenol Tab*) 650 mg PO Q4H PRN PRN Reason: FEVER/PAIN Atorvastatin Calcium (Lipitor*) 80 mg PO DAILY [facility] Last Admin: 05/28/17 10:03 Dose: 80 mg Cephalexin HCl (Keflex Cap*) 500 mg PO TID [facility] Last Admin: 05/28/17 10:03 Dose: 500 mg Clopidogrel Bisulfate (Plavix Tab*) 75 mg PO DAILY [facility] Last Admin: 05/28/17 10:03 Dose: 75 mg Digoxin (Lanoxin Tab*) 0.125 mg PO 1700 [facility] Last Admin: 05/27/17 16:18 Dose: 0.125 mg Guaifenesin (Mucinex*) 600 mg PO BID [facility] Last Admin: 05/28/17 10:03 Dose: 600 mg Levalbuterol HCl (Xopenex Hfa Inhaler*) 2 puff INH Q6H PRN PRN Reason: Wheezing/shortness of breath Last Admin: 05/24/17 09:28 Dose: 2 puff Levalbuterol HCl (Xopenex 1.25 Mg/0.5 Ml Neb.Anne*) 1.25 mg INH Q2H PRN PRN Reason: WHEEZING Last Admin: 05/22/17 20:03 Dose: 1.25 mg Levothyroxine Sodium (Synthroid Tab*) 176 mcg PO 0600 [facility] Last Admin: 05/28/17 06:32 Dose: 176 mcg Metoprolol Succinate (Toprol Xl Tab*) 25 mg PO 0900,2100 [facility] Last Admin: 05/28/17 10:03 Dose: 25 mg Neomycin/Polymyxin/Bacitracin (Neosporin Top Oint Tube*) 1 applic TOPICAL BID [facility] Last Admin: 05/27/17 21:29 Dose: 1 applic Ondansetron HCl (Zofran Inj*) 4 mg IV Q6H PRN PRN Reason: NAUSEA Temazepam (Restoril Cap*) 15 mg PO BEDTIME PRN PRN Reason: INSOMNIA Last Admin: 05/27/17 22:44 Dose: 15 mg Torsemide (Demadex*) 30 mg PO DAILY [facility] Last Admin: 05/27/17 09:38 Dose: Not Given Warfarin Sodium (Coumadin Tab(*)) 2.5 mg PO 1700 [facility] PRN Reason: Protocol Last Admin: 05/27/17 16:18 Dose: 2.5 mg Vital Signs 05/27/17 05/27/17 05/27/17 16:04 16:18 18:00 Temperature 98.8 F Pulse Rate 88 95 81 Respiratory 16 16 Rate Blood Pressure 91/63 (mmHg) O2 Sat by Pulse 97 98 Oximetry 05/27/17 05/27/17 05/28/17 20:00 21:22 07:42 Temperature 98.3 F Pulse Rate 81 79 Respiratory 16 20 Rate Blood Pressure 101/61 96/51 (mmHg) O2 Sat by Pulse 94 Oximetry 05/28/17 10:56 Temperature Pulse Rate Respiratory Rate Blood Pressure 93/47 (mmHg) O2 Sat by Pulse Oximetry Oxygen Devices in Use Now: Nasal Cannula - 2L-94% Appearance: Elderly male sitting up in bed, NAD Eyes: No Scleral Icterus Ears/Nose/Mouth/Throat: Mucous Membranes Moist Respiratory: Symmetrical Chest Expansion and Respiratory Effort, Clear to Auscultation Cardiovascular: NL Sounds; No Murmurs; No JVD, RRR, No Edema Abdominal: NL Sounds; No Tenderness; No Distention Extremities: No Clubbing, Cyanosis Skin: No Rash or Ulcers, No Nodules or Sclerosis, - - small ulceration dorsum of R foot, healing wound R ankle, R thigh with small defect, old blood noted on mepilex, pt was able to express a clot and blood from the defect Neurological: Alert and Oriented x 3 Result Diagrams: 05/25/17 05:30 05/25/17 05:30 Additional Lab and Data: . 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 ICD disable by Dr. Quinones on 05/26. Would like to continue his medications as they are right now. (2) Acute on chronic systolic (congestive) heart failure Current Visit: Yes Status: Acute Code(s): I50.23 - ACUTE ON CHRONIC SYSTOLIC (CONGESTIVE) HEART FAILURE SNOMED Code(s): 984013563 Comment: Continue current medication regimen. Plan is for the patient to go to a facility to receive hospice. (3) CKD (chronic kidney disease) Current Visit: Yes Status: Acute Code(s): N18.9 - CHRONIC KIDNEY DISEASE, UNSPECIFIED SNOMED Code(s): 454264916 Comment: Not checking as pt planning on being signed onto hospice. (4) Wound infection Current Visit: Yes Status: Acute Code(s): T14.8XXA - OTHER INJURY OF UNSPECIFIED BODY REGION, INITIAL ENCOUNTER; L08.9 - LOCAL INFECTION OF THE SKIN AND SUBCUTANEOUS TISSUE, UNSP SNOMED Code(s): 80131425 Comment: Continue keflex. Check ultrasound of R thigh to eval for underlying fluid collection. (5) Afib Current Visit: Yes Status: Acute Code(s): I48.91 - UNSPECIFIED ATRIAL FIBRILLATION SNOMED Code(s): 90045867 Comment: Continue digoxin, metoprolol and coumadin. Recheck INR tomorrow. (6) Hypothyroidism Current Visit: Yes Status: Acute Code(s): E03.9 - HYPOTHYROIDISM, UNSPECIFIED SNOMED Code(s): 57826101 Comment: Continue home dose synthroid. (7) DVT prophylaxis Current Visit: Yes Status: Acute Code(s): YVR6329 - SNOMED Code(s): 568857223 Comment: Coumadin (8) DNR (do not resuscitate) Current Visit: Yes Status: Acute Status and Disposition: Inpatient, now comfort care, awaiting placement
[2017-05-28] MEDS: Neomycin/Polym/Bacit TOP OINT* 15 GM TOPICAL SCH ×2 (12:25→21:11)
--- NOTE | 2017-05-28 13:41 | RAD ---
INDICATION: Evaluation of a nonhealing surgical wound at the mid to distal right thigh. Relevant surgical history includes at least 2 failed bypass arterial grafts. COMPARISON: None TECHNIQUE: Real time ultrasound images of the right thigh at the area of interest. were acquired with suero scale and Doppler color flow imaging. FINDINGS: Presumably corresponding to the site of external drainage there is a defect in the dermis measuring 5 mm in width. Deep to the dermis there is a mostly echogenic and avascular phlegmonous collection with scattered foci of simple fluid. The potential foci of simple fluid do not measure water than 5 mm (for example image 11 of 24). Partially visualized is what is assumed to be an arterial bypass graft with no flow in the lumen. IMPRESSION: As above.
[2017-05-28] MEDS: Digoxin TAB* 0.125 MG PO SCH (17:04)
[2017-05-28] MEDS: Warfarin TAB(*) 2.5 MG PO SCH (17:04)
[2017-05-29] MEDS: Temazepam CAP* 15 MG PO PRN ×2 (00:32→22:22)
[2017-05-29] MEDS: Levothyroxine TAB* 88 MCG TAB PO SCH (04:34)
[2017-05-29] MEDS: Metoprolol Succinate XL TAB* 25 MG PO SCH ×3 (10:02→20:39)
[2017-05-29] MEDS: Torsemide TAB* 20 MG PO SCH (10:02)
[2017-05-29] MEDS: Atorvastatin* 80 MG TAB PO SCH (10:03)
[2017-05-29] MEDS: Clopidogrel TAB* 75 MG PO SCH (10:04)
[2017-05-29] MEDS: Cephalexin CAP* 500 MG PO SCH ×3 (10:04→20:30)
[2017-05-29] MEDS: guaiFENesin ER TAB 600 MG PO SCH ×2 (10:04→20:30)
[2017-05-29] MEDS: Neomycin/Polym/Bacit TOP OINT* 15 GM TOPICAL SCH (10:07)
[2017-05-29] MEDS ORDERED: HYDROcodone/ACETAMIN 5-325 MG* 1 TAB PO PRN (15:04)
--- NOTE | 2017-05-29 15:08 | PN ---
Subjective Date of Service: 05/29/17 Interval History: Pt is feeling ok. He state he had more bleeding from the R thigh wound today after getting in the shower. He is having moderate back discomfort. Family History: Unchanged from Admission Social History: Unchanged from Admission Past Medical History: Unchanged from Admission Objective Active Medications: Acetaminophen (Tylenol Tab*) 650 mg PO Q4H PRN PRN Reason: FEVER/PAIN Atorvastatin Calcium (Lipitor*) 80 mg PO DAILY [facility] [place] Last Admin: 05/29/17 10:03 Dose: 80 mg Cephalexin HCl (Keflex Cap*) 500 mg PO TID [facility] [place] Last Admin: 05/29/17 14:26 Dose: 500 mg Clopidogrel Bisulfate (Plavix Tab*) 75 mg PO DAILY [facility] [place] Last Admin: 05/29/17 10:04 Dose: 75 mg Digoxin (Lanoxin Tab*) 0.125 mg PO 1700 [facility] [place] Last Admin: 05/28/17 17:04 Dose: 0.125 mg Guaifenesin (Mucinex*) 600 mg PO BID [facility] [place] Last Admin: 05/29/17 10:04 Dose: 600 mg Levalbuterol HCl (Xopenex Hfa Inhaler*) 2 puff INH Q6H PRN PRN Reason: Wheezing/shortness of breath Last Admin: 05/24/17 09:28 Dose: 2 puff Levalbuterol HCl (Xopenex 1.25 Mg/0.5 Ml Neb.Anne*) 1.25 mg INH Q2H PRN PRN Reason: WHEEZING Last Admin: 05/22/17 20:03 Dose: 1.25 mg Levothyroxine Sodium (Synthroid Tab*) 176 mcg PO 0600 [facility] [place] Last Admin: 05/29/17 04:34 Dose: 176 mcg Metoprolol Succinate (Toprol Xl Tab*) 25 mg PO 0900,2100 [facility] [place] Last Admin: 05/29/17 10:02 Dose: 25 mg Neomycin/Polymyxin/Bacitracin (Neosporin Top Oint Tube*) 1 applic TOPICAL BID [facility] [place] Last Admin: 05/29/17 10:07 Dose: Not Given Ondansetron HCl (Zofran Inj*) 4 mg IV Q6H PRN PRN Reason: NAUSEA Temazepam (Restoril Cap*) 15 mg PO BEDTIME PRN PRN Reason: INSOMNIA Last Admin: 05/29/17 00:32 Dose: 15 mg Torsemide (Demadex*) 30 mg PO DAILY [facility] [place] Last Admin: 05/29/17 10:02 Dose: 30 mg Warfarin Sodium (Coumadin Tab(*)) 5 mg PO 1700 [place] PRN Reason: Protocol Vital Signs 05/28/17 05/28/17 05/28/17 15:18 17:04 19:25 Temperature 98.5 F Pulse Rate 81 64 Respiratory 18 18 Rate Blood Pressure 96/51 (mmHg) O2 Sat by Pulse 95 Oximetry 05/28/17 05/28/17 05/29/17 21:01 21:05 00:00 Temperature 98.2 F Pulse Rate 86 Respiratory 18 Rate Blood Pressure 97/64 106/66 (mmHg) O2 Sat by Pulse 97 97 Oximetry 05/29/17 05/29/17 05/29/17 00:37 07:36 08:00 Temperature 98.9 F 98.4 F Pulse Rate 80 78 Respiratory 20 24 20 Rate Blood Pressure 107/57 106/67 (mmHg) O2 Sat by Pulse 97 99 Oximetry 05/29/17 11:42 Temperature 98.2 F Pulse Rate 78 Respiratory 24 Rate Blood Pressure 91/55 (mmHg) O2 Sat by Pulse 100 Oximetry Oxygen Devices in Use Now: Nasal Cannula - 10%-2L Appearance: Elderly male sitting in a chair, NAD Eyes: No Scleral Icterus Ears/Nose/Mouth/Throat: Mucous Membranes Moist Respiratory: Symmetrical Chest Expansion and Respiratory Effort, Clear to Auscultation Cardiovascular: NL Sounds; No Murmurs; No JVD, RRR, No Edema Abdominal: NL Sounds; No Tenderness; No Distention Extremities: No Clubbing, Cyanosis Skin: No Nodules or Sclerosis, - - ulcerations unchanged from yesterday Neurological: Alert and Oriented x 3 Result Diagrams: 05/25/17 05:30 05/25/17 05:30 Additional Lab and Data: . 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 ICD disable by Dr. Quinones on 05/26. Would like to continue his medications as they are right now. (2) Acute on chronic systolic (congestive) heart failure Current Visit: Yes Status: Acute Code(s): I50.23 - ACUTE ON CHRONIC SYSTOLIC (CONGESTIVE) HEART FAILURE SNOMED Code(s): 438620830 Comment: Continue current medication regimen. Plan is for the patient to go to [facility] to receive hospice. (3) CKD (chronic kidney disease) Current Visit: Yes Status: Acute Code(s): N18.9 - CHRONIC KIDNEY DISEASE, UNSPECIFIED SNOMED Code(s): 792324723 Comment: Not checking as pt planning on being signed onto hospice. (4) Wound infection Current Visit: Yes Status: Acute Code(s): T14.8XXA - OTHER INJURY OF UNSPECIFIED BODY REGION, INITIAL ENCOUNTER; L08.9 - LOCAL INFECTION OF THE SKIN AND SUBCUTANEOUS TISSUE, UNSP SNOMED Code(s): 35665171 Comment: Continue keflex for graft infection. Ultrasound of the R thigh shows a phlegmonous fluid collection. I suspect that is where the blood is coming from. Continue to follow. (5) Afib Current Visit: Yes Status: Acute Code(s): I48.91 - UNSPECIFIED ATRIAL FIBRILLATION SNOMED Code(s): 85537493 Comment: Continue digoxin, metoprolol and coumadin. INR subtherapeutic today , increase coumadin to 5mg daily. (6) Hypothyroidism Current Visit: Yes Status: Acute Code(s): E03.9 - HYPOTHYROIDISM, UNSPECIFIED SNOMED Code(s): 42413431 Comment: Continue home dose synthroid. (7) DVT prophylaxis Current Visit: Yes Status: Acute Code(s): NDA2988 - SNOMED Code(s): 025749031 Comment: Coumadin (8) DNR (do not resuscitate) Current Visit: Yes Status: Acute Status and Disposition: Inpatient, now comfort care, awaiting placement
[2017-05-29] MEDS: Warfarin TAB(*) 5 MG PO SCH (16:55)
[2017-05-29] MEDS: Digoxin TAB* 0.125 MG PO SCH (16:56)
[2017-05-30] MEDS: Neomycin/Polym/Bacit TOP OINT* 15 GM TOPICAL SCH ×3 (02:14→22:48)
[2017-05-30] MEDS: Cyclobenzaprine TAB* 10 MG PO PRN (03:06)
[2017-05-30] MEDS: Levothyroxine TAB* 88 MCG TAB PO SCH (07:11)
[2017-05-30] MEDS: Cephalexin CAP* 500 MG PO SCH ×3 (09:08→21:45)
[2017-05-30] MEDS: Clopidogrel TAB* 75 MG PO SCH (09:08)
[2017-05-30] MEDS: Atorvastatin* 80 MG TAB PO SCH (09:08)
[2017-05-30] MEDS: guaiFENesin ER TAB 600 MG PO SCH ×2 (09:09→21:45)
[2017-05-30] MEDS: Metoprolol Succinate XL TAB* 25 MG PO SCH ×2 (09:09→21:45)
[2017-05-30] MEDS: Torsemide TAB* 20 MG PO SCH (09:09)
--- NOTE | 2017-05-30 15:57 | PN ---
Subjective Date of Service: 05/30/17 Interval History: Pt is feeling fine. He denies any chest pain or SOB. No issues with BMs. He continues to have bloody drainage from the R thigh lesion. There is no associated pain. Family History: Unchanged from Admission Social History: Unchanged from Admission Past Medical History: Unchanged from Admission Objective Active Medications: Acetaminophen (Tylenol Tab*) 650 mg PO Q4H PRN PRN Reason: FEVER/PAIN Hydrocodone Bitart/Acetaminophen ([place] 5-325 Tab*) 1 tab PO Q4H PRN PRN Reason: PAIN Last Admin: 05/30/17 09:08 Dose: 1 tab Atorvastatin Calcium (Lipitor*) 80 mg PO DAILY [facility] Last Admin: 05/30/17 09:08 Dose: 80 mg Cephalexin HCl (Keflex Cap*) 500 mg PO TID [facility] Last Admin: 05/30/17 13:59 Dose: 500 mg Clopidogrel Bisulfate (Plavix Tab*) 75 mg PO DAILY [facility] Last Admin: 05/30/17 09:08 Dose: 75 mg Cyclobenzaprine HCl (Flexeril Tab*) 10 mg PO TID PRN PRN Reason: SPASMS Last Admin: 05/30/17 03:06 Dose: 10 mg Digoxin (Lanoxin Tab*) 0.125 mg PO 1700 [facility] Last Admin: 05/29/17 16:56 Dose: 0.125 mg Guaifenesin (Mucinex*) 600 mg PO BID [facility] Last Admin: 05/30/17 09:09 Dose: 600 mg Levalbuterol HCl (Xopenex Hfa Inhaler*) 2 puff INH Q6H PRN PRN Reason: Wheezing/shortness of breath Last Admin: 05/24/17 09:28 Dose: 2 puff Levalbuterol HCl (Xopenex 1.25 Mg/0.5 Ml Neb.Anne*) 1.25 mg INH Q2H PRN PRN Reason: WHEEZING Last Admin: 05/22/17 20:03 Dose: 1.25 mg Levothyroxine Sodium (Synthroid Tab*) 176 mcg PO 0600 [facility] Last Admin: 05/30/17 07:11 Dose: 176 mcg Metoprolol Succinate (Toprol Xl Tab*) 25 mg PO 0900,2100 [facility] Last Admin: 05/30/17 09:09 Dose: 25 mg Neomycin/Polymyxin/Bacitracin (Neosporin Top Oint Tube*) 1 applic TOPICAL BID [facility] Last Admin: 05/30/17 09:10 Dose: 1 applic Ondansetron HCl (Zofran Inj*) 4 mg IV Q6H PRN PRN Reason: NAUSEA Temazepam (Restoril Cap*) 15 mg PO BEDTIME PRN PRN Reason: INSOMNIA Last Admin: 05/29/17 22:22 Dose: 15 mg Torsemide (Demadex*) 30 mg PO DAILY [facility] Last Admin: 05/30/17 09:09 Dose: 30 mg Warfarin Sodium (Coumadin Tab(*)) 5 mg PO 1700 [facility] PRN Reason: Protocol Last Admin: 05/29/17 16:55 Dose: 5 mg Vital Signs 05/29/17 05/29/17 05/29/17 16:56 18:11 19:26 Temperature 98.8 F Pulse Rate 65 80 78 Respiratory 16 24 Rate Blood Pressure 99/58 (mmHg) O2 Sat by Pulse 98 97 Oximetry 05/29/17 05/29/17 05/29/17 20:00 20:35 23:44 Temperature 99.1 F Pulse Rate 81 80 Respiratory 20 20 Rate Blood Pressure 108/74 84/57 (mmHg) O2 Sat by Pulse 97 Oximetry 05/29/17 05/30/17 05/30/17 23:56 02:09 03:06 Temperature Pulse Rate 80 80 Respiratory 20 20 Rate Blood Pressure 88/59 (mmHg) O2 Sat by Pulse 97 Oximetry 05/30/17 05/30/17 05/30/17 07:15 07:21 08:00 Temperature 98.6 F Pulse Rate 80 Respiratory 19 20 18 Rate Blood Pressure 92/64 (mmHg) O2 Sat by Pulse 96 Oximetry 05/30/17 05/30/17 05/30/17 08:11 08:58 09:08 Temperature Pulse Rate 80 83 Respiratory 20 18 Rate Blood Pressure 92/65 (mmHg) O2 Sat by Pulse 97 100 Oximetry 05/30/17 05/30/17 05/30/17 11:22 11:39 15:37 Temperature 99.0 F Pulse Rate 81 Respiratory 20 18 20 Rate Blood Pressure 99/67 (mmHg) O2 Sat by Pulse 96 Oximetry Oxygen Devices in Use Now: Nasal Cannula Appearance: Elderly male sitting up in bed, NAD Eyes: No Scleral Icterus Ears/Nose/Mouth/Throat: Mucous Membranes Moist Respiratory: Symmetrical Chest Expansion and Respiratory Effort, Clear to Auscultation Cardiovascular: NL Sounds; No Murmurs; No JVD, RRR, No Edema Abdominal: NL Sounds; No Tenderness; No Distention Extremities: No Clubbing, Cyanosis Skin: No Nodules or Sclerosis, - - mepilex not removed today-bloody drainage noted on mepilex Neurological: Alert and Oriented x 3 Result Diagrams: 05/25/17 05:30 05/25/17 05:30 Additional Lab and Data: . Assess/Plan/Problems-Billing Acute on chronic systolic CHF exacerbation in a 71 yo M with hx of systolic CHF , PAD, CAD, VTach with ICD fire 03/2017, hypothyroidism, GERD, hx of lung cancer - Patient Problems (1) Comfort measures only status Current Visit: Yes Status: Acute Code(s): Z51.5 - ENCOUNTER FOR PALLIATIVE CARE SNOMED Code(s): 40137370069661 Comment: Comfort measures only. ICD disable by Dr. Quinones on 05/26. Would like to continue his medications as they are right now. (2) Acute on chronic systolic (congestive) heart failure Current Visit: Yes Status: Acute Code(s): I50.23 - ACUTE ON CHRONIC SYSTOLIC (CONGESTIVE) HEART FAILURE SNOMED Code(s): 865209148 Comment: Continue current medication regimen. Plan is for the patient to go to [facility] to receive hospice. (3) CKD (chronic kidney disease) Current Visit: Yes Status: Acute Code(s): N18.9 - CHRONIC KIDNEY DISEASE, UNSPECIFIED SNOMED Code(s): 925210131 Comment: Not checking as pt planning on being signed onto hospice. (4) Wound infection Current Visit: Yes Status: Acute Code(s): T14.8XXA - OTHER INJURY OF UNSPECIFIED BODY REGION, INITIAL ENCOUNTER; L08.9 - LOCAL INFECTION OF THE SKIN AND SUBCUTANEOUS TISSUE, UNSP SNOMED Code(s): 28863569 Comment: Continue keflex for graft infection. Ultrasound of the R thigh shows a phlegmonous fluid collection. I suspect that is where the blood is coming from however he continues to have drainage. Continue to follow. (5) Afib Current Visit: Yes Status: Acute Code(s): I48.91 - UNSPECIFIED ATRIAL FIBRILLATION SNOMED Code(s): 47408244 Comment: Continue digoxin, metoprolol and coumadin. INR subtherapeutic yesterday, continue coumadin 5mg daily. Repeat INR tomorrow. (6) Hypothyroidism Current Visit: Yes Status: Acute Code(s): E03.9 - HYPOTHYROIDISM, UNSPECIFIED SNOMED Code(s): 91905022 Comment: Continue home dose synthroid. (7) DVT prophylaxis Current Visit: Yes Status: Acute Code(s): YEV9566 - SNOMED Code(s): 972420712 Comment: Coumadin (8) DNR (do not resuscitate) Current Visit: Yes Status: Acute Status and Disposition: Inpatient, now comfort care, awaiting placement
[2017-05-30] MEDS: Warfarin TAB(*) 5 MG PO SCH (16:45)
[2017-05-30] MEDS: Digoxin TAB* 0.125 MG PO SCH (16:45)
[2017-05-30] MEDS: Temazepam CAP* 15 MG PO PRN (22:29)
[2017-05-31] MEDS: Cyclobenzaprine TAB* 10 MG PO PRN ×2 (05:18→17:33)
[2017-05-31] MEDS: Levothyroxine TAB* 88 MCG TAB PO SCH (05:19)
[2017-05-31] MEDS: Clopidogrel TAB* 75 MG PO SCH (08:36)
[2017-05-31] MEDS: Torsemide TAB* 20 MG PO SCH (08:36)
[2017-05-31] MEDS: Atorvastatin* 80 MG TAB PO SCH (08:36)
[2017-05-31] MEDS: Cephalexin CAP* 500 MG PO SCH ×3 (08:36→21:25)
[2017-05-31] MEDS: guaiFENesin ER TAB 600 MG PO SCH ×2 (08:36→21:25)
[2017-05-31] MEDS: Metoprolol Succinate XL TAB* 25 MG PO SCH ×2 (08:37→21:25)
[2017-05-31] MEDS: Neomycin/Polym/Bacit TOP OINT* 15 GM TOPICAL SCH ×2 (08:38→21:29)
--- NOTE | 2017-05-31 17:29 | PN ---
Subjective Date of Service: 05/31/17 Interval History: Pt is doing ok. No SOB. He has some mild L flank pain. He has opted to accept a bed at the hospice residence for tomorrow. Family History: Unchanged from Admission Social History: Unchanged from Admission Past Medical History: Unchanged from Admission Objective Active Medications: Acetaminophen (Tylenol Tab*) 650 mg PO Q4H PRN PRN Reason: FEVER/PAIN Hydrocodone Bitart/Acetaminophen ([place] 5-325 Tab*) 1 tab PO Q4H PRN PRN Reason: PAIN Last Admin: 05/30/17 09:08 Dose: 1 tab Atorvastatin Calcium (Lipitor*) 80 mg PO DAILY [facility] Last Admin: 05/31/17 08:36 Dose: 80 mg Cephalexin HCl (Keflex Cap*) 500 mg PO TID [facility] Last Admin: 05/31/17 15:05 Dose: 500 mg Clopidogrel Bisulfate (Plavix Tab*) 75 mg PO DAILY [facility] Last Admin: 05/31/17 08:36 Dose: 75 mg Cyclobenzaprine HCl (Flexeril Tab*) 10 mg PO TID PRN PRN Reason: SPASMS Last Admin: 05/31/17 05:18 Dose: 10 mg Digoxin (Lanoxin Tab*) 0.125 mg PO 1700 [facility] Last Admin: 05/30/17 16:45 Dose: 0.125 mg Guaifenesin (Mucinex*) 600 mg PO BID [facility] Last Admin: 05/31/17 08:36 Dose: 600 mg Levalbuterol HCl (Xopenex Hfa Inhaler*) 2 puff INH Q6H PRN PRN Reason: Wheezing/shortness of breath Last Admin: 05/24/17 09:28 Dose: 2 puff Levalbuterol HCl (Xopenex 1.25 Mg/0.5 Ml Neb.Anne*) 1.25 mg INH Q2H PRN PRN Reason: WHEEZING Last Admin: 05/22/17 20:03 Dose: 1.25 mg Levothyroxine Sodium (Synthroid Tab*) 176 mcg PO 0600 [facility] Last Admin: 05/31/17 05:19 Dose: 176 mcg Metoprolol Succinate (Toprol Xl Tab*) 25 mg PO 0900,2100 [facility] Last Admin: 05/31/17 08:37 Dose: Not Given Neomycin/Polymyxin/Bacitracin (Neosporin Top Oint Tube*) 1 applic TOPICAL BID [facility] Last Admin: 05/31/17 08:38 Dose: Not Given Ondansetron HCl (Zofran Inj*) 4 mg IV Q6H PRN PRN Reason: NAUSEA Temazepam (Restoril Cap*) 15 mg PO BEDTIME PRN PRN Reason: INSOMNIA Last Admin: 05/30/17 22:29 Dose: 15 mg Torsemide (Demadex*) 30 mg PO DAILY [facility] Last Admin: 05/31/17 08:36 Dose: 30 mg Warfarin Sodium (Coumadin Tab(*)) 5 mg PO 1700 [facility] PRN Reason: Protocol Last Admin: 05/30/17 16:45 Dose: 5 mg Vital Signs 05/30/17 05/30/17 05/30/17 20:00 21:50 23:53 Temperature 98.1 F Pulse Rate 85 84 85 Respiratory 22 22 Rate Blood Pressure 105/59 113/70 (mmHg) O2 Sat by Pulse 96 96 Oximetry 05/31/17 05/31/17 05/31/17 00:00 00:17 03:48 Temperature 98.1 F 98.6 F Pulse Rate 85 80 Respiratory 22 18 Rate Blood Pressure 113/70 97/54 (mmHg) O2 Sat by Pulse 96 96 92 Oximetry 05/31/17 05/31/17 05/31/17 05:18 07:46 07:53 Temperature 98.0 F Pulse Rate 81 Respiratory 20 16 Rate Blood Pressure 78/53 86/48 (mmHg) O2 Sat by Pulse 95 Oximetry 05/31/17 05/31/17 05/31/17 08:38 08:41 11:25 Temperature 98.6 F Pulse Rate 74 Respiratory 18 20 18 Rate Blood Pressure 106/57 (mmHg) O2 Sat by Pulse 91 Oximetry 05/31/17 17:16 Temperature Pulse Rate 85 Respiratory 16 Rate Blood Pressure (mmHg) O2 Sat by Pulse 96 Oximetry Oxygen Devices in Use Now: Nasal Cannula Appearance: Elderly male sitting up in bed, NAD Eyes: No Scleral Icterus Ears/Nose/Mouth/Throat: Mucous Membranes Moist Respiratory: Symmetrical Chest Expansion and Respiratory Effort, - - bibasilar crackles Cardiovascular: NL Sounds; No Murmurs; No JVD, RRR, No Edema Abdominal: NL Sounds; No Tenderness; No Distention Extremities: No Clubbing, Cyanosis Skin: No Nodules or Sclerosis, - - R LE wounds not inspected at this time Neurological: Alert and Oriented x 3 Result Diagrams: 05/25/17 05:30 05/25/17 05:30 Additional Lab and Data: . Assess/Plan/Problems-Billing Acute on chronic systolic CHF exacerbation in a 71 yo M with hx of systolic CHF , PAD, CAD, VTach with ICD fire 03/2017, hypothyroidism, GERD, hx of lung cancer - Patient Problems (1) Comfort measures only status Current Visit: Yes Status: Acute Code(s): Z51.5 - ENCOUNTER FOR PALLIATIVE CARE SNOMED Code(s): 72574629356444 Comment: Comfort measures only. ICD disable by Dr. Quinones on 05/26. Would like to continue his medications as they are right now. Plan is to go to the hospice residence tomorrow. (2) Acute on chronic systolic (congestive) heart failure Current Visit: Yes Status: Acute Code(s): I50.23 - ACUTE ON CHRONIC SYSTOLIC (CONGESTIVE) HEART FAILURE SNOMED Code(s): 477076869 Comment: Continue current medication regimen. Plan is for the patient to go to the [facility]idence to receive hospice. (3) CKD (chronic kidney disease) Current Visit: Yes Status: Acute Code(s): N18.9 - CHRONIC KIDNEY DISEASE, UNSPECIFIED SNOMED Code(s): 889251631 Comment: Not checking as pt planning on being signed onto hospice. (4) Wound infection Current Visit: Yes Status: Acute Code(s): T14.8XXA - OTHER INJURY OF UNSPECIFIED BODY REGION, INITIAL ENCOUNTER; L08.9 - LOCAL INFECTION OF THE SKIN AND SUBCUTANEOUS TISSUE, UNSP SNOMED Code(s): 80374704 Comment: Continue keflex for graft infection. Ultrasound of the R thigh shows a phlegmonous fluid collection. I suspect that is where the blood is coming from however he continues to have drainage. Continue to follow. (5) Afib Current Visit: Yes Status: Acute Code(s): I48.91 - UNSPECIFIED ATRIAL FIBRILLATION SNOMED Code(s): 45370794 Comment: Continue digoxin, metoprolol and coumadin. INR subtherapeutic yesterday, continue coumadin 5mg daily. He needs a follow up INR on 06/03/17 if he wants to continue on coumadin. (6) Hypothyroidism Current Visit: Yes Status: Acute Code(s): E03.9 - HYPOTHYROIDISM, UNSPECIFIED SNOMED Code(s): 43681008 Comment: Continue home dose synthroid. (7) DVT prophylaxis Current Visit: Yes Status: Acute Code(s): [id number] - SNOMED Code(s): 956262537 Comment: Coumadin (8) DNR (do not resuscitate) Current Visit: Yes Status: Acute Status and Disposition: Inpatient, now comfort care, awaiting placement
[2017-05-31] MEDS: Warfarin TAB(*) 5 MG PO SCH (17:32)
[2017-05-31] MEDS: Digoxin TAB* 0.125 MG PO SCH (17:34)
[2017-06-01] MEDS: Temazepam CAP* 15 MG PO PRN (00:02)
[2017-06-01] MEDS: Levothyroxine TAB* 88 MCG TAB PO SCH (06:07)
--- NOTE | 2017-06-01 08:34 | DS ---
CC: Dr. Zacarias * DISCHARGE SUMMARY: DATE OF ADMISSION: 05/21/17 DATE OF DISCHARGE: 06/01/17 PRIMARY CARE PROVIDER: Dr. Zacarias. PRINCIPAL DIAGNOSES: 1. Fxezc-is-fqdptul systolic congestive heart failure. 2. History of ventricular tachycardia, status post deactivation of ICD. 3. Atrial fibrillation. 4. Chronic kidney disease. SECONDARY DIAGNOSES: 1. Peripheral arterial disease. 2. Hypothyroidism. 3. Gastroesophageal reflux disease. 4. Hypertension. 5. Chronic obstructive pulmonary disease. 6. Hyperlipidemia. 7. Coronary artery disease. DISCHARGE MEDICATIONS: 1. Potassium chloride 20 mEq p.o. daily. 2. Keflex 500 mg p.o. t.i.d. 3. Lipitor 80 mg p.o. daily. 4. Xopenex two puffs inhaled q.6 hours p.r.n. shortness of breath. 5. Lunesta 3 mg p.o. q.h.s. 6. Plavix 75 mg p.o. daily. 7. Metoprolol XL 12.5 mg p.o. b.i.d. 8. Levothyroxine 176 mcg p.o. daily. 9. Guaifenesin ER 600 mg p.o. b.i.d. 10. Coumadin 5 mg p.o. daily (new dose). 11. Torsemide 30 mg p.o. daily (new). 12. Temazepam 15 mg p.o. q.h.s. p.r.n. insomnia (new). 13. Ativan 1 mg p.o. q.6 hours p.r.n. anxiety (new). 14. [place] 5/325 one tab p.o. q.4 hours p.r.n. pain (new). 15. Digoxin 0.125 mg p.o. daily (new). 16. Flexeril 10 mg p.o. t.i.d. p.r.n. spasm (new). HOSPITAL COURSE: Mr. Varela is a 71-year-old male with a known history of severe systolic CHF with an EF estimated to be 20-25%, history of ventricular tachycardia, and atrial fibrillation, history of hypertension, COPD, hyperlipidemia, coronary artery disease, chronic kidney disease, and a past history of lung cancer who presents to the emergency room with complaints of shortness of breath and weight gain. The patient reported four weeks of decline following his ICD firing in March of this year. The patient was seen by Chelo Foreman NP on the day of admission, and she referred him to the emergency room to aid in diuresis. The patient underwent transthoracic echocardiogram that revealed global hypokinesis of the left ventricle with minor regional variation. There is severely decreased left ventricular systolic function with an estimated EF of 20-25%. There are felt to be no significant changes when compared to the previous study done on 10/09/16. The patient was aggressively diuresed with metolazone and Bumex. The patient was having issues with atrial fibrillation early on during his hospitalization where his metoprolol dose was increased and digoxin was added. He was continued on his usual dose of Coumadin. Over the course of the hospitalization, it was ultimately decided that the patient wished to pursue comfort measures only. The patient's ICD was disabled on 05/26/17 at the request of the patient. The patient was felt to be eligible for hospice. Over the next several days, the patient was awaiting a decision on placement to where he could receive hospice. The patient was offered a hospice residence bed for 06/01/17. At this point, the patient is going to be discharged to the hospice residence tomorrow, 06/01/17. The patient, of note, was found to have a right thigh wound that is approximately 5 mm in size. The patient has been able to express blood from this. An ultrasound was performed to try to identify the source of the blood. A phlegmonous collection was identified under the area of the wound, and I suspect that perhaps at one time there was a hematoma that is now able to be expressed out. There are no signs of infection. This does not cause the patient any discomfort. As the patient is going to be discharged to hospice tomorrow, no further re-evaluation has been performed. FOLLOWUP CONCERNS: The patient is being discharged to the hospice residence tomorrow, 06/01/17. ACTIVITY LEVEL: As tolerated. DIET: No added salt. CONDITION ON DISCHARGE: Guarded. TIME SPENT: Thirty-five minutes were spent discharging this patient. [id number]/[facility] #: [id number] MTDD
[2017-06-01] MEDS ORDERED: Furosemide TAB* 20 MG PO SCH (09:00)
[2017-06-01] MEDS: Clopidogrel TAB* 75 MG PO SCH (09:09)
[2017-06-01] MEDS: Metoprolol Succinate XL TAB* 25 MG PO SCH (09:09)
[2017-06-01] MEDS: guaiFENesin ER TAB 600 MG PO SCH (09:10)
[2017-06-01] MEDS: Torsemide TAB* 20 MG PO SCH (09:10)
[2017-06-01] MEDS: Cephalexin CAP* 500 MG PO SCH (09:10)
[2017-06-01] MEDS: Atorvastatin* 80 MG TAB PO SCH (09:10)
[2017-06-01] MEDS: Neomycin/Polym/Bacit TOP OINT* 15 GM TOPICAL SCH (09:21)
[2017-06-01 10:21] VITALS: BP 100/56
== END 2017-06-01 11:20 | disposition hospice, inpatient (51) | DRG 291 ==
LOC: ED 16:42 → MEDTELE 19:22 → SSU 05-30 23:40
PROVIDERS: ADMIT Internal Medicine; ATTEND Hospitalist
DX: I13.0 Hypertensive heart and chronic kidney disease with heart failure and stage 1 through stage 4 chronic kidney disease, or unspecified chronic kidney disease (principal); I50.23 Acute on chronic systolic (congestive) heart failure; I48.91 Unspecified atrial fibrillation; I42.9 Cardiomyopathy, unspecified; Z99.81 Dependence on supplemental oxygen; J44.9 Chronic obstructive pulmonary disease, unspecified; I73.9 Peripheral vascular disease, unspecified; N18.9 Chronic kidney disease, unspecified; I25.10 Atherosclerotic heart disease of native coronary artery without angina pectoris; K21.9 Gastro-esophageal reflux disease without esophagitis; E03.9 Hypothyroidism, unspecified; Z79.02 Long term (current) use of antithrombotics/antiplatelets; Z79.01 Long term (current) use of anticoagulants; Z85.118 Personal history of other malignant neoplasm of bronchus and lung; S70.11XA Contusion of right thigh, initial encounter; X58.XXXA Exposure to other specified factors, initial encounter; Y92.9 Unspecified place or not applicable; Z95.1 Presence of aortocoronary bypass graft; Z95.810 Presence of automatic (implantable) cardiac defibrillator; Z88.5 Allergy status to narcotic agent; Z91.041 Radiographic dye allergy status; Z66 Do not resuscitate; E78.00 Pure hypercholesterolemia, unspecified; G47.30 Sleep apnea, unspecified; Z87.442 Personal history of urinary calculi; F17.210 Nicotine dependence, cigarettes, uncomplicated; Z82.49 Family history of ischemic heart disease and other diseases of the circulatory system; Z51.5 Encounter for palliative care
CPT/HCPCS: 36415; 71010; 80048; 80053; 82565; 83605; 83735; 83880; 84484; 84520; 85025; 85610; 85730; 93005; 93306; 94640; 94760; 97597; A9270-GY; J1940